=== PATIENT | female | born 1935 | race Caucasian/White ===

== ENCOUNTER → 2016-11-12 | Outpatient (CLI) | payer MEDICARE, OTHER | LOC: M WUC 10:59 | PROVIDERS: ATTEND Physician Assistant | DX: L03.116 Cellulitis of left lower limb (principal) ==

== ENCOUNTER → 2017-10-31 | Outpatient (REF) | payer MEDICARE, OTHER ==
[2017-10-31 13:25] LABS: BASO # 0.1 10^3/uL (0.0-0.2); EOS # 0.2 10^3/uL (0.0-0.50); EOS % 2.8 % (0.0-3.0); HEMATOCRIT 43.3 % (36.0-47.0); HEMOGLOBIN 13.8 g/dl (12.0-15.5); IMMATURE GRANULOCYTE % 0.3 % (0-3.0); LYMPH # 1.8 10^3/uL (1.5-4.5); LYMPH % 29.9 % (24.0-44.0); MEAN CORPUSCULAR HEMOGLOBIN 29.2 pg (27.0-33.0); MEAN CORPUSCULAR HGB CONC 31.9 g/dl (32.0-36.5); MEAN CORPUSCULAR VOLUME 91.5 fl (80.0-96.0); MONO # 0.5 10^3/uL (0.0-0.8); MONO % 8.4 % (0.0-5.0); NEUTROPHILS # 3.6 10^3/uL (1.8-7.7); NEUTROPHILS % 57.6 % (36.0-66.0); PLATELET COUNT, AUTOMATED 233 10^3/uL (150-450); RED BLOOD COUNT 4.73 10^6/uL (4.00-5.40); RED CELL DISTRIBUTION WIDTH 13.7 % (11.5-14.5); WHITE BLOOD COUNT 6.2 10^3/uL (4.0-10.0)
[2017-10-31 13:41] LABS: TOTAL 25(OH) VITAMIN D 43.3 NG/ML (30.0-100.0)
[2017-10-31 13:48] LABS: ALBUMIN 3.7 GM/DL (3.2-5.2); ALBUMIN/GLOBULIN RATIO 1.23 (1.00-1.93); ALKALINE PHOSPHATASE 61 U/L (45-117); ALT/SGPT 15 U/L (12-78); ANION GAP 7 MEQ/L (8-16); AST/SGOT 17 U/L (7-37); BILIRUBIN,TOTAL 0.4 MG/DL (0.2-1.0); BLOOD UREA NITROGEN 31 MG/DL (7-18); CALCIUM LEVEL 9.8 MG/DL (8.8-10.2); CARBON DIOXIDE LEVEL 27 MEQ/L (21-32); CHLORIDE LEVEL 109 MEQ/L (98-107); CHOLESTEROL LEVEL 209 MG/DL (<200); CHOLESTEROL RISK RATIO 5.358 (<5); CREATININE FOR GFR 1.22 MG/DL (0.55-1.30); GLOMERULAR FILTRATION RATE 44.7 (>32); GLUCOSE, FASTING 100 MG/DL (70-100); HDL CHOLESTEROL 39 MG/DL (>40); LDL CHOLESTEROL 122.2 MG/DL (<100); NON-HDL-C 170 MG/DL; POTASSIUM SERUM 4.6 MEQ/L (3.5-5.1); SODIUM LEVEL 143 MEQ/L (136-145); TOTAL PROTEIN 6.7 GM/DL (6.4-8.2); TRIGLYCERIDES LEVEL 239 MG/DL (<150)
== END ==
LOC: M SFHCADAM 12:41
DX: I10 Essential (primary) hypertension (principal); E55.9 Vitamin D deficiency, unspecified
CPT/HCPCS: 80053

== ENCOUNTER → 2018-05-30 | Outpatient (REF) | payer MEDICARE, OTHER | LOC: M LAB REF 17:18 | PROVIDERS: ATTEND Physician Assistant | DX: N39.0 Urinary tract infection, site not specified (principal) ==

== ENCOUNTER → 2018-06-18 | Outpatient (CLI) | payer MEDICARE, OTHER ==
--- NOTE | 2018-06-18 13:52 | REPMRS ---
Patient History The patient states she had a clinical breast exam in May 2018.No known family history of cancer. Took hormonal contraceptives for 20 years. Digital Mammo Screening Bilat: June 18, 2018 - Exam #: [id number] Bilateral CC and MLO view(s) were taken. Technologist: Kristine Barboza, Technologist Prior study comparison: June 09, 2014, bilateral bilat screen digital mammo, performed at [facility] ([facility] May 24, 2013, bilateral bilat screen digital mammo, performed at [facility] ([facility]). April 18, 2012, bilateral bilat screen digital mammo, performed at [facility] ([facility]). FINDINGS: There are scattered fibroglandular densities. There is a 6 mm spiculated density at approximately 12 o'clock in the right breast middle third which merits further evaluation. There has been no other change in the appearance of the mammogram from the prior studies. There is a mild amount of scattered fibroglandular density which is fairly symmetric. There is no other interval development of dominant mass, architectural distortion, or clustered microcalcification suggestive of malignancy. 3-D tomosynthesis shows no additional findings. Assessment: BI-RADS/ACR category 0 mammogram, incomplete. BIRADS/ACR category zero mammogram, incomplete. Additional imaging and/or prior images needed. Recommendation Ultrasound and special view mammogram of the right breast. This patient's Lifetime Breast Cancer RIsk is estimated at 0.6 %. This mammogram was interpreted with the aid of an FDA-approved computer-aided dectection system. Electronically Signed By: Boubacar Pak MD 06/18/18 [id number]
== END ==
LOC: M RAD 09:39
PROVIDERS: ATTEND Obstetrics & Gynecology
DX: R92.2 Inconclusive mammogram (principal)

== ENCOUNTER → 2018-06-28 | Outpatient (CLI) | payer MEDICARE, OTHER ==
--- NOTE | 2018-06-28 13:36 | REP ---
Digital diagnostic unilateral right breast mammography with CAD and focused right breast sonography: History: Screening mammography from June 18, 2018 was BI-RADS category 0 because of a possible 6 mm spiculated density at 12 o'clock position. Diagnostic imaging was recommended. Comparison is also made with prior mammography from June 09, 2014 and May 24, 2013. Mammographic findings: Magnified focal spot compression CC, MLO and true MLO views of the right breast confirm the presence of a slightly spiculated appearing 7 mm nodule in the superior and slightly medial right breast middle third at approximately the 1 o'clock position. Scattered fibroglandular elements are seen. No other suspicious mammographic finding. Sonographic findings: Focused right breast sonography is performed in the 12 to 1 o'clock position. There is a 4 mm cyst at 12 o'clock which does not have suspicious sonographic features. At 1 o'clock, 4.4 cm from the nipple there is a 7 x 7 x 6 mm hypoechoic mass with its long axis perpendicular to the skin producing acoustic shadowing and displaying irregular borders. This is felt to account for the mammographic opacity. It is sonographically suspicious as well. Impression: BI-RADS/ACR category 5 mammogram. Highly suggestive of malignancy - appropriate action should be taken. Requires biopsy or surgical treatment. BI-RADS category five highly suspicious right breast imaging. 7 mm spiculated mass seen mammographically and corresponding to an irregular 7 mm hypoechoic mass sonographically. Ultrasound-guided needle biopsy procedure of the right breast lesion is recommended with marker clip placement and post marker mammography. This mammogram was interpreted with the aid of an FDA-approved computer-aided detection system. The patient states she had a clinical breast exam in May 2018. The patient letter being requested is m4. Electronically Signed by Elvis Pak MD 06/28/2018 06:08 P
== END ==
LOC: M RAD 10:27
PROVIDERS: ATTEND Obstetrics & Gynecology
DX: N63.10 Unspecified lump in the right breast, unspecified quadrant (principal); N60.01 Solitary cyst of right breast

== ENCOUNTER → 2018-08-02 | Outpatient (REF) | payer MEDICARE, OTHER ==
[2018-08-02 12:50] LABS: BASO # 0.1 10^3/uL (0.0-0.2); EOS # 0.2 10^3/uL (0.0-0.50); EOS % 2.2 % (0.0-3.0); HEMATOCRIT 42.8 % (36.0-47.0); HEMOGLOBIN 13.5 g/dl (12.0-15.5); LYMPH # 2.4 10^3/uL (1.5-4.5); LYMPH % 35.7 % (24.0-44.0); MEAN CORPUSCULAR HEMOGLOBIN 28.4 pg (27.0-33.0); MEAN CORPUSCULAR HGB CONC 31.5 g/dl (32.0-36.5); MEAN CORPUSCULAR VOLUME 90.1 fl (80.0-96.0); MONO # 0.5 10^3/uL (0.0-0.8); MONO % 7.2 % (0.0-5.0); NEUTROPHILS # 3.6 10^3/uL (1.8-7.7); NEUTROPHILS % 53.6 % (36.0-66.0); PLATELET COUNT, AUTOMATED 262 10^3/uL (150-450); RED BLOOD COUNT 4.75 10^6/uL (4.00-5.40); WHITE BLOOD COUNT 6.8 10^3/uL (4.0-10.0)
[2018-08-02 12:58] LABS: ALBUMIN 3.6 GM/DL (3.2-5.2); BILIRUBIN,TOTAL 0.4 MG/DL (0.2-1.0); CALCIUM LEVEL 9.9 MG/DL (8.8-10.2); CREATININE FOR GFR 1.25 MG/DL (0.55-1.30); GLOMERULAR FILTRATION RATE 43.5 (>32); TOTAL PROTEIN 6.6 GM/DL (6.4-8.2)
== END ==
LOC: M SFHCADAM 09:57
PROVIDERS: ATTEND Family Medicine
DX: Z01.818 Encounter for other preprocedural examination (principal); C50.911 Malignant neoplasm of unspecified site of right female breast

== ENCOUNTER → 2018-08-02 | Outpatient (CLI) | payer MEDICARE, OTHER ==
--- NOTE | 2018-08-02 10:57 | REP ---
CHEST PA AND LATERAL: 08/02/2018. Clinical history: Preoperative examination. Findings: There were no prior studies. The two views show the lung lozoya well inflated. CP angles sharply defined. Some mild hyperinflation suggested with flattening of the diaphragms on the lateral view and prominent retrosternal clear space. No pulmonary nodule or parenchymal mass visible. There is no effusion, infiltrate, atelectasis or mass. Heart size borderline. No specific chamber enlargement. The mediastinal and hilar contours are normal. The aorta is mildly tortuous but normal for age. Airway intact. Bony thorax without acute compression deformity. There is some old post-traumatic changes of the inferior anterolateral and lateral left ribs. Impression: 1. Some mild hyperinflation with COPD but no infiltrate, effusion, cardiomegaly or edema. Electronically Signed by Ranjan Franco MD 08/02/2018 02:21 P
== END ==
LOC: M ADAMS 10:01
PROVIDERS: ATTEND Family Medicine
DX: Z01.818 Encounter for other preprocedural examination (principal); C50.911 Malignant neoplasm of unspecified site of right female breast; J44.9 Chronic obstructive pulmonary disease, unspecified
CPT/HCPCS: 71046; 80053; 85025; 93005; G0463

== ENCOUNTER → 2019-05-02 | Outpatient (REF) | payer MEDICARE, OTHER ==
[2019-05-02 17:14] LABS: BILIRUBIN,TOTAL 0.4 MG/DL (0.2-1.0); CALCIUM LEVEL 10.2 MG/DL (8.8-10.2); CREATININE FOR GFR 1.4 MG/DL (0.55-1.30); POTASSIUM SERUM 4.3 MEQ/L (3.5-5.1); TOTAL PROTEIN 7.5 GM/DL (6.4-8.2)
== END ==
LOC: M SFHCADAM 13:39
PROVIDERS: ATTEND Family Medicine
DX: I10 Essential (primary) hypertension (principal)
CPT/HCPCS: 80053; G0463

== ENCOUNTER → 2020-05-21 | Outpatient (REF) | payer MEDICARE, OTHER ==
[2020-05-22 13:16] LABS: BASO # 0.1 10^3/uL (0.0-0.2); BASO % 1.2 % (0.0-1.0); EOS # 0.3 10^3/uL (0.0-0.5); EOS % 3.6 % (0.0-3.0); HEMOGLOBIN 13.6 g/dl (12.0-15.5); LYMPH # 2.5 10^3/uL (1.5-5.0); LYMPH % 33.7 % (24.0-44.0); MEAN CORPUSCULAR HEMOGLOBIN 28.2 pg (27.0-33.0); MEAN CORPUSCULAR HGB CONC 30.9 g/dl (32.0-36.5); MEAN CORPUSCULAR VOLUME 91.3 fl (80.0-96.0); MONO # 0.7 10^3/uL (0.0-0.8); MONO % 9.3 % (0.0-5.0); NEUTROPHILS # 3.9 10^3/uL (1.5-8.5); NEUTROPHILS % 51.8 % (36.0-66.0); PLATELET COUNT, AUTOMATED 269 10^3/uL (150-450); RED BLOOD COUNT 4.82 10^6/uL (4.00-5.40); WHITE BLOOD COUNT 7.4 10^3/uL (4.0-10.0)
[2020-05-22 13:48] LABS: BILIRUBIN,TOTAL 0.4 MG/DL (0.2-1.0); CALCIUM LEVEL 10.6 MG/DL (8.8-10.2); CREATININE FOR GFR 1.63 MG/DL (0.55-1.30); GLOMERULAR FILTRATION RATE 31.8 (>32); POTASSIUM SERUM 4.9 MEQ/L (3.5-5.1)
[2020-05-22 13:49] LABS: ALBUMIN 3.9 GM/DL (3.2-5.2); CHOLESTEROL RISK RATIO 5.088 (<5)
== END ==
LOC: M SFHCADAM 15:31
PROVIDERS: ATTEND Family Medicine
DX: I10 Essential (primary) hypertension (principal); Z79.899 Other long term (current) drug therapy
CPT/HCPCS: 80053; 80061; 85025; G0463

== ENCOUNTER 2021-09-29 18:32 | Inpatient (IN) | payer MEDICARE, OTHER ==
[~2021-09-29] VITALS: Ht 162.6 cm; Wt 67.4 kg
[2021-09-29 22:50] LABS: BASO # 0.1 10^3/uL (0.0-0.2); BASO % 0.9 % (0.0-1.0); EOS # 0.2 10^3/uL (0.0-0.5); EOS % 2.3 % (0.0-3.0); HEMATOCRIT 38.3 % (36.0-47.0); HEMOGLOBIN 12.3 g/dl (12.0-15.5); LYMPH # 2.3 10^3/uL (1.5-5.0); LYMPH % 34.5 % (24.0-44.0); MEAN CORPUSCULAR HEMOGLOBIN 28.8 pg (27.0-33.0); MEAN CORPUSCULAR HGB CONC 32.1 g/dl (32.0-36.5); MEAN CORPUSCULAR VOLUME 89.7 fl (80.0-96.0); MONO # 0.7 10^3/uL (0.0-0.8); MONO % 10.7 % (2.0-8.0); NEUTROPHILS # 3.4 10^3/uL (1.5-8.5); NEUTROPHILS % 51.3 % (36.0-66.0); PLATELET COUNT, AUTOMATED 276 10^3/uL (150-450); RED BLOOD COUNT 4.27 10^6/uL (4.00-5.40); WHITE BLOOD COUNT 6.7 10^3/uL (4.0-10.0)
[2021-09-29 23:38] LABS: ALBUMIN 3.2 GM/DL (3.2-5.2); BILIRUBIN,DIRECT 0.2 MG/DL (0.0-0.2); BILIRUBIN,TOTAL 0.6 MG/DL (0.2-1.0); THYROID STIMULATING HORMONE 2.98 uIU/ML (0.358-3.740); TOTAL PROTEIN 5.9 GM/DL (6.4-8.2)
[2021-09-29] MEDS ORDERED: cefTRIAXone SOD 1 GM in D5W MINI-BAG PLUS 50 ML IV ONE (23:45)
[2021-09-30] MEDS ORDERED: LISI20TA33 PO (00:23)
[2021-09-30] MEDS ORDERED: VITA100093 PO (00:23)
[2021-09-30] MEDS ORDERED: IBUP-1720 PO (00:23)
[2021-09-30] MEDS ORDERED: CHLO25TA PO (00:23)
[2021-09-30] MEDS ORDERED: HOME MED LIST COMPLETE! XX SCH (00:25)
[2021-09-30 01:40] LABS: CREATININE FOR GFR 0.94 MG/DL (0.55-1.30)
[2021-09-30 01:41] LABS: CALCIUM LEVEL 10.5 MG/DL (8.8-10.2); POTASSIUM SERUM 3.9 MEQ/L (3.5-5.1)
[2021-09-30] MEDS ORDERED: IBUPROFEN 400MG TAB PO PRN (01:50)
[2021-09-30 02:01] LABS: RSV AMPLIFICATION NEGATIVE (NEGATIVE)
[2021-09-30 02:38] VITALS: BP 139/68
[2021-09-30 03:36] VITALS: BP 147/70
[2021-09-30] MEDS ORDERED: ACETAMINOPHEN TAB 650MG DOSE (2X325MG) PO PRN (05:30)
[2021-09-30 06:14] LABS: BASO # 0.1 10^3/uL (0.0-0.2); EOS # 0.2 10^3/uL (0.0-0.5); EOS % 3.3 % (0.0-3.0); HEMATOCRIT 38.2 % (36.0-47.0); HEMOGLOBIN 12.2 g/dl (12.0-15.5); LYMPH # 1.8 10^3/uL (1.5-5.0); LYMPH % 28.9 % (24.0-44.0); MEAN CORPUSCULAR HEMOGLOBIN 28.4 pg (27.0-33.0); MEAN CORPUSCULAR HGB CONC 31.9 g/dl (32.0-36.5); MEAN CORPUSCULAR VOLUME 88.8 fl (80.0-96.0); MONO # 0.7 10^3/uL (0.0-0.8); MONO % 11.2 % (2.0-8.0); NEUTROPHILS # 3.3 10^3/uL (1.5-8.5); NEUTROPHILS % 55.3 % (36.0-66.0); PLATELET COUNT, AUTOMATED 286 10^3/uL (150-450); WHITE BLOOD COUNT 6.1 10^3/uL (4.0-10.0)
[2021-09-30 07:25] VITALS: BP 134/76
[2021-09-30] MEDS: ENOXAPARIN 40MG/0.4ML SYRINGE (J1650 PER 10MG) SC SCH (08:00)
[2021-09-30] MEDS: CHLORTHALIDONE 25 MG TAB PO SCH (08:00)
[2021-09-30] MEDS: VITAMIN D 1,000 INTERNATIONAL UNITS TABLET PO SCH (08:00)
[2021-09-30 16:04] VITALS: BP 127/58
[2021-09-30 20:16] VITALS: BP 141/74
[2021-10-01] VITALS: BP 137/63
[2021-10-01 04:00] VITALS: BP 130/68
[2021-10-01 08:25] VITALS: BP 145/68
[2021-10-01] MEDS: ENOXAPARIN 40MG/0.4ML SYRINGE (J1650 PER 10MG) SC SCH (09:01)
[2021-10-01] MEDS: CHLORTHALIDONE 25 MG TAB PO SCH (09:01)
[2021-10-01] MEDS: VITAMIN D 1,000 INTERNATIONAL UNITS TABLET PO SCH (09:01)
[2021-10-01 15:30] VITALS: BP 150/80
[2021-10-01 22:00] VITALS: BP 136/63
[2021-10-02 06:00] VITALS: BP 138/70
[2021-10-02] MEDS: VITAMIN D 1,000 INTERNATIONAL UNITS TABLET PO SCH (09:00)
[2021-10-02] MEDS: ENOXAPARIN 40MG/0.4ML SYRINGE (J1650 PER 10MG) SC SCH (09:00)
[2021-10-02] MEDS: CHLORTHALIDONE 25 MG TAB PO SCH (09:00)
== END 2021-10-02 09:40 | disposition home health service (06) | DRG 948 ==
LOC: M ED 18:32 → M ED INP 18:33 → M PCU 09-30 02:36 → OBSVTOIN 10-01 10:17 → M MSPAV 10-01 15:16
PROVIDERS: ADMIT Internal Medicine; ATTEND Internal Medicine
DX: R53.1 Weakness (principal); R82.71 Bacteriuria; Z66 Do not resuscitate; I10 Essential (primary) hypertension; E55.9 Vitamin D deficiency, unspecified; Z85.3 Personal history of malignant neoplasm of breast; Z98.41 Cataract extraction status, right eye; Z98.42 Cataract extraction status, left eye; Z72.3 Lack of physical exercise; M54.9 Dorsalgia, unspecified; Z20.822 Contact with and (suspected) exposure to COVID-19; Z79.899 Other long term (current) drug therapy

== ENCOUNTER 2022-04-02 15:18 | Inpatient (IN) | payer MEDICARE, OTHER ==
[~2022-04-02] VITALS: Ht 165.1 cm; Wt 69.9 kg
[2022-04-02] MEDS: amLODIPine 5 MG TAB PO SCH (09:00)
[~2022-04-02 15:18] MED LIST: CHLO25TA PO; IBUP-1720 PO; LISI20TA33 PO; VITA100093 PO
[2022-04-02] MEDS ORDERED: BOOSTRIX/ADACEL VACCINE (DIPHTH/PERTUSS/ACELL/TETANUS) 0.5ML SYR IM.IMMUN ONE (15:45)
[2022-04-02] MEDS ORDERED: MORPHINE 4 MG/ML 1ML VIAL/SYRINGE IV ONE (16:55)
[2022-04-02 17:14] LABS: BASO # 0.1 10^3/uL (0.0-0.2); BASO % 0.4 % (0.0-1.0); EOS # 0.1 10^3/uL (0.0-0.5); EOS % 0.6 % (0.0-3.0); HEMATOCRIT 41.8 % (36.0-47.0); HEMOGLOBIN 13.2 g/dl (12.0-15.5); LYMPH # 1.3 10^3/uL (1.5-5.0); MEAN CORPUSCULAR HEMOGLOBIN 28.8 pg (27.0-33.0); MEAN CORPUSCULAR HGB CONC 31.6 g/dl (32.0-36.5); MEAN CORPUSCULAR VOLUME 91.3 fl (80.0-96.0); MONO # 0.6 10^3/uL (0.0-0.8); MONO % 4.3 % (2.0-8.0); NEUTROPHILS # 10.9 10^3/uL (1.5-8.5); NEUTROPHILS % 83.8 % (36.0-66.0); PLATELET COUNT, AUTOMATED 221 10^3/uL (150-450); RED BLOOD COUNT 4.58 10^6/uL (4.00-5.40)
[2022-04-02] MEDS ORDERED: HOME MED LIST COMPLETE! XX SCH (17:30)
[2022-04-02 17:38] LABS: CREATININE FOR GFR 1.1 MG/DL (0.55-1.30); GLOMERULAR FILTRATION RATE 49.9 (>32); POTASSIUM SERUM 3.9 MEQ/L (3.5-5.1)
[2022-04-02] MEDS ORDERED: MORPHINE 4 MG/ML 1ML VIAL/SYRINGE IV PRN (18:35)
[2022-04-02] MEDS ORDERED: MORPHINE 2 MG/ML 1ML VIAL IV PRN (18:35)
[2022-04-02 20:08] LABS: RSV AMPLIFICATION NEGATIVE (NEGATIVE)
[2022-04-02 20:55] VITALS: BP 145/97
[2022-04-02] MEDS: HEPARIN SOD (PORCINE) 5000UNITS/ML 1ML VIAL/SYRINGE SC SCH (21:24)
[2022-04-02] MEDS: KETOROLAC 30 MG/ML 1ML VIAL IV SCH (21:24)
[2022-04-03] VITALS (10 sets, daily range): BP systolic 113–147; BP diastolic 59–85
[2022-04-03] MEDS: KETOROLAC 30 MG/ML 1ML VIAL IV SCH ×3 (04:04→20:07)
[2022-04-03] MEDS: HEPARIN SOD (PORCINE) 5000UNITS/ML 1ML VIAL/SYRINGE SC SCH ×3 (06:00→20:06)
[2022-04-03 07:04] LABS: HEMATOCRIT 35.4 % (36.0-47.0); HEMOGLOBIN 11.3 g/dl (12.0-15.5); MEAN CORPUSCULAR HEMOGLOBIN 29.2 pg (27.0-33.0); MEAN CORPUSCULAR HGB CONC 31.9 g/dl (32.0-36.5); MEAN CORPUSCULAR VOLUME 91.5 fl (80.0-96.0); PLATELET COUNT, AUTOMATED 179 10^3/uL (150-450); RED BLOOD COUNT 3.87 10^6/uL (4.00-5.40); WHITE BLOOD COUNT 8.2 10^3/uL (4.0-10.0)
[2022-04-03] MEDS ORDERED: DESFLURANE 240 ML INHALANT As Ordered ONE (07:37)
[2022-04-03] MEDS ORDERED: fentaNYL 250 MCG/5 ML INJECTION As Ordered ONE (07:39)
[2022-04-03] MEDS ORDERED: propofoL 200 MG/20 ML VIAL As Ordered ONE (07:39)
[2022-04-03] MEDS ORDERED: dexameTHASONE 4 MG/ML 1ML VIAL (J1100 PER 1MG) As Ordered ONE (07:39)
[2022-04-03] MEDS ORDERED: ROCURONIUM BROMIDE 50 MG/5 ML VIAL As Ordered ONE (07:39)
[2022-04-03] MEDS ORDERED: ONDANSETRON 4MG 2ML VIAL As Ordered ONE (07:40)
[2022-04-03 07:45] LABS: CALCIUM LEVEL 9.3 MG/DL (8.8-10.2); CREATININE FOR GFR 1.22 MG/DL (0.55-1.30); GLOMERULAR FILTRATION RATE 44.3 (>32); MAGNESIUM LEVEL 1.7 MG/DL (1.8-2.4); POTASSIUM SERUM 4.1 MEQ/L (3.5-5.1)
[2022-04-03] MEDS: VITAMIN D 1,000 INTERNATIONAL UNITS TABLET PO SCH (08:35)
[2022-04-03] MEDS: amLODIPine 5 MG TAB PO SCH (08:36)
[2022-04-03] MEDS ORDERED: FLUBLOK(EGG FREE)(QUAD)INFLUENZA VACC 0.5ML SYRINGE 18YRS & OLDER IM.IMMUN ONE (09:00)
[2022-04-03] MEDS ORDERED: MAG SULF 1GM/100ML (MAG RUN) 1 GM in IV 1 EA IV ONE (10:50)
[2022-04-03] MEDS ORDERED: TRANEXAMIC ACID 100 MG/ML 10ML VIAL As Ordered ONE (11:36)
[2022-04-03] MEDS ORDERED: ceFAZolin 2 GM/D5W 50 ML IV BAG (J0690 PER 500MG) As Ordered ONE (11:36)
[2022-04-03] MEDS ORDERED: hydrALAZINE 20MG/ML 1ML VIAL (J0360 PER 20MG) As Ordered ONE (12:15)
[2022-04-03] MEDS ORDERED: HYDROmorphone HCL 2MG/ML 1ML VIAL As Ordered ONE (12:26)
[2022-04-03] MEDS ORDERED: VECURONIUM BROMIDE 10MG VIAL As Ordered ONE (12:39)
[2022-04-03] MEDS ORDERED: BUPIVACAINE HCL 0.5% 30ML VIAL As Ordered ONE (13:19)
[2022-04-03] MEDS ORDERED: BUPIVACAINE/EPIN 0.5% 30 ML VIAL As Ordered ONE (14:24)
[2022-04-03] MEDS ORDERED: ACETAMINOPHEN 1000MG 100ML IV BTL (OFIRMEV) (J0131 PER 10MG) As Ordered ONE (15:02)
[2022-04-03] MEDS ORDERED: SUGAMMADEX SODIUM 500 MG/5 ML VIAL (BRIDION) As Ordered ONE (15:05)
[2022-04-03] MEDS ORDERED: fentaNYL 100 MCG/2 ML INJECTION IV PRN (15:15)
[2022-04-03] MEDS ORDERED: ONDANSETRON 4MG 2ML VIAL IV PRN ×2 (15:15→16:30)
[2022-04-03] MEDS ORDERED: LR 1,000 ML IV SCH (15:15)
[2022-04-03] MEDS ORDERED: oxyCODONE 5MG TAB PO PRN (15:15)
[2022-04-03] MEDS ORDERED: traMADol 50 MG TAB PO PRN (16:30)
[2022-04-03] MEDS ORDERED: ACETAMINOPHEN TAB 650MG DOSE (2X325MG) PO PRN (16:30)
[2022-04-03] MEDS ORDERED: PERCOCET 5MG/325MG TAB PO PRN (16:30)
[2022-04-03] MEDS: LR 1,000 ML IV SCH (17:28)
[2022-04-03] MEDS: ASPIRIN 81MG ENTERIC TABLET PO SCH (20:06)
[2022-04-03] MEDS: ceFAZolin SOD 2 GM in IV 1 EA IV SCH (20:06)
[2022-04-04] MEDS: LR 1,000 ML IV SCH (01:44)
[2022-04-04 02:00] VITALS: BP 117/51
[2022-04-04] MEDS: ceFAZolin SOD 2 GM in IV 1 EA IV SCH (04:11)
[2022-04-04] MEDS: KETOROLAC 30 MG/ML 1ML VIAL IV SCH (04:12)
[2022-04-04] MEDS: HEPARIN SOD (PORCINE) 5000UNITS/ML 1ML VIAL/SYRINGE SC SCH ×3 (05:33→22:15)
[2022-04-04 05:54] VITALS: BP 140/56
[2022-04-04 06:02] LABS: HEMATOCRIT 26.7 % (36.0-47.0); HEMOGLOBIN 8.8 g/dl (12.0-15.5); MEAN CORPUSCULAR HEMOGLOBIN 29.3 pg (27.0-33.0); PLATELET COUNT, AUTOMATED 148 10^3/uL (150-450); WHITE BLOOD COUNT 8.2 10^3/uL (4.0-10.0)
[2022-04-04 06:39] LABS: CALCIUM LEVEL 8.9 MG/DL (8.8-10.2); CREATININE FOR GFR 1.36 MG/DL (0.55-1.30); GLOMERULAR FILTRATION RATE 39.1 (>32); MAGNESIUM LEVEL 1.9 MG/DL (1.8-2.4); POTASSIUM SERUM 3.8 MEQ/L (3.5-5.1)
[2022-04-04] MEDS: PERCOCET 5MG/325MG TAB PO PRN ×3 (06:52→20:36)
[2022-04-04] MEDS: amLODIPine 5 MG TAB PO SCH (09:00)
[2022-04-04 10:00] VITALS: BP 130/50
[2022-04-04] MEDS: ASPIRIN 81MG ENTERIC TABLET PO SCH ×2 (10:09→20:36)
[2022-04-04] MEDS: VITAMIN D 1,000 INTERNATIONAL UNITS TABLET PO SCH (10:09)
[2022-04-04 14:00] VITALS: BP 125/67
[2022-04-04 20:25] VITALS: BP 134/57
[2022-04-05 02:03] VITALS: BP 136/57
[2022-04-05] MEDS: HEPARIN SOD (PORCINE) 5000UNITS/ML 1ML VIAL/SYRINGE SC SCH (05:25)
[2022-04-05 06:12] VITALS: BP 135/58
[2022-04-05 07:13] LABS: MEAN CORPUSCULAR HEMOGLOBIN 30.1 pg (27.0-33.0); MEAN CORPUSCULAR HGB CONC 33.3 g/dl (32.0-36.5); MEAN CORPUSCULAR VOLUME 90.2 fl (80.0-96.0); PLATELET COUNT, AUTOMATED 145 10^3/uL (150-450); RED BLOOD COUNT 2.66 10^6/uL (4.00-5.40); WHITE BLOOD COUNT 7.5 10^3/uL (4.0-10.0)
[2022-04-05 07:41] LABS: CALCIUM LEVEL 8.5 MG/DL (8.8-10.2); CREATININE FOR GFR 1.03 MG/DL (0.55-1.30); GLOMERULAR FILTRATION RATE 53.8 (>32); MAGNESIUM LEVEL 1.7 MG/DL (1.8-2.4); PHOSPHORUS LEVEL 2.4 MG/DL (2.5-4.9); POTASSIUM SERUM 3.7 MEQ/L (3.5-5.1)
[2022-04-05] MEDS: ASPIRIN 81MG ENTERIC TABLET PO SCH (08:06)
[2022-04-05] MEDS: VITAMIN D 1,000 INTERNATIONAL UNITS TABLET PO SCH (08:06)
[2022-04-05 08:09] VITALS: BP 132/58
[2022-04-05] MEDS: amLODIPine 5 MG TAB PO SCH (08:09)
[2022-04-05] MEDS ORDERED: PERCOCET PO (11:47)
[2022-04-05] MEDS ORDERED: MIRA3350 PO (11:47)
[2022-04-05] MEDS ORDERED: COLA100C5 PO (11:47)
[2022-04-05] MEDS ORDERED: ASPI81TAEC PO (11:47)
[2022-04-05 12:00] VITALS: BP 128/60
== END 2022-04-05 13:05 | DRG 522 ==
LOC: EDBD 15:18 → M ED 16:43 → M ED INP 18:16 → ENRESERV 19:27 → M MS5PR 20:55
PROVIDERS: ADMIT Internal Medicine; ATTEND Internal Medicine
PROC: 0SRS0J9 Replacement of Left Hip Joint, Femoral Surface with Synthetic Substitute, Cemented, Open Approach (ICD-10-PCS; principal; 2022-04-03 10:00)
PROC: 0PSL04Z Reposition Left Ulna with Internal Fixation Device, Open Approach (ICD-10-PCS; 2022-04-03 10:00)
DX: M80.052A Age-related osteoporosis with current pathological fracture, left femur, initial encounter for fracture (principal); I10 Essential (primary) hypertension; M80.032A Age-related osteoporosis with current pathological fracture, left forearm, initial encounter for fracture; M80.022A Age-related osteoporosis with current pathological fracture, left humerus, initial encounter for fracture; Z79.899 Other long term (current) drug therapy

== ENCOUNTER 2022-04-05 09:50 | Inpatient (IN) | payer MEDICARE, OTHER ==
[~2022-04-05] VITALS: Ht 165.1 cm; Wt 76.1 kg
[2022-04-05] MEDS ORDERED: ASPI81TAEC PO (11:47)
[2022-04-05] MEDS ORDERED: MIRA3350 PO (11:47)
[2022-04-05] MEDS ORDERED: PERCOCET PO (11:47)
[2022-04-05] MEDS ORDERED: COLA100C5 PO (11:47)
[2022-04-05 13:29] VITALS: BP 138/64
[2022-04-05 14:00] VITALS: BP 138/64
[2022-04-05] MEDS: PANTOPRAZOLE 40MG TAB (PROTONIX) PO SCH (16:16)
[2022-04-05] MEDS: OYSTER SHELL CALCIUM 500 MG TAB PO SCH (16:16)
[2022-04-05] MEDS: ACETAMINOPHEN 500 MG TAB PO SCH ×2 (16:16→21:14)
[2022-04-05 20:00] VITALS: BP 121/57
[2022-04-05] MEDS: ASPIRIN 81MG ENTERIC TABLET PO SCH (21:13)
[2022-04-05] MEDS: DOCUSATE SODIUM 100MG CAPSULE PO SCH (21:13)
[2022-04-05] MEDS: SENNA 8.6 MG TAB (SENOKOT) PO SCH (21:14)
[2022-04-05] MEDS: MAGNESIUM OXIDE 400MG TAB (MAG-OX) PO SCH (21:14)
[2022-04-06 05:27] VITALS: BP 126/60
[2022-04-06 06:30] LABS: BASO # 0.1 10^3/uL (0.0-0.2); BASO % 0.7 % (0.0-1.0); EOS # 0.5 10^3/uL (0.0-0.5); EOS % 6.2 % (0.0-3.0); HEMATOCRIT 26.1 % (36.0-47.0); HEMOGLOBIN 8.3 g/dl (12.0-15.5); LYMPH # 1.1 10^3/uL (1.5-5.0); LYMPH % 13.2 % (24.0-44.0); MEAN CORPUSCULAR HEMOGLOBIN 28.9 pg (27.0-33.0); MEAN CORPUSCULAR HGB CONC 31.8 g/dl (32.0-36.5); MEAN CORPUSCULAR VOLUME 90.9 fl (80.0-96.0); MONO # 0.7 10^3/uL (0.0-0.8); MONO % 8.6 % (2.0-8.0); NEUTROPHILS # 5.8 10^3/uL (1.5-8.5); NEUTROPHILS % 70.7 % (36.0-66.0); PLATELET COUNT, AUTOMATED 158 10^3/uL (150-450); RED BLOOD COUNT 2.87 10^6/uL (4.00-5.40); WHITE BLOOD COUNT 8.2 10^3/uL (4.0-10.0)
[2022-04-06 06:55] LABS: ALBUMIN 2.3 GM/DL (3.2-5.2); BILIRUBIN,TOTAL 0.7 MG/DL (0.2-1.0); CREATININE FOR GFR 1.04 MG/DL (0.55-1.30); GLOMERULAR FILTRATION RATE 53.2 (>32); POTASSIUM SERUM 3.9 MEQ/L (3.5-5.1); TOTAL PROTEIN 5.4 GM/DL (6.4-8.2)
[2022-04-06] MEDS: VITAMIN D 1,000 INTERNATIONAL UNITS TABLET PO SCH (07:37)
[2022-04-06] MEDS: ASPIRIN 81MG ENTERIC TABLET PO SCH ×2 (07:37→20:08)
[2022-04-06] MEDS: DOCUSATE SODIUM 100MG CAPSULE PO SCH ×2 (07:37→20:08)
[2022-04-06] MEDS: PANTOPRAZOLE 40MG TAB (PROTONIX) PO SCH (07:37)
[2022-04-06] MEDS: amLODIPine 5 MG TAB PO SCH (07:37)
[2022-04-06] MEDS: MAGNESIUM OXIDE 400MG TAB (MAG-OX) PO SCH ×2 (07:38→20:09)
[2022-04-06] MEDS: ACETAMINOPHEN 500 MG TAB PO SCH ×3 (07:38→20:08)
[2022-04-06] MEDS: OYSTER SHELL CALCIUM 500 MG TAB PO SCH (07:38)
[2022-04-06 14:00] VITALS: BP 116/58
[2022-04-06] MEDS ORDERED: ACETAMINOPHEN TAB 650MG DOSE (2X325MG) PO ONE (14:40)
[2022-04-06] MEDS ORDERED: diphenhydrAMINE 25MG CAP PO ONE (14:40)
[2022-04-06 17:12] VITALS: BP 119/59
[2022-04-06 17:27] VITALS: BP 135/63
[2022-04-06 18:27] VITALS: BP 126/63
[2022-04-06 20:00] VITALS: BP 127/62
[2022-04-06] MEDS: SENNA 8.6 MG TAB (SENOKOT) PO SCH (20:08)
[2022-04-06 21:46] LABS: PERCENT SATURATION 7.3 % (13.2-45.0)
[2022-04-07 05:58] VITALS: BP 138/64
[2022-04-07] MEDS: VITAMIN D 1,000 INTERNATIONAL UNITS TABLET PO SCH (08:58)
[2022-04-07] MEDS: amLODIPine 5 MG TAB PO SCH (08:59)
[2022-04-07] MEDS: ASPIRIN 81MG ENTERIC TABLET PO SCH ×2 (08:59→20:30)
[2022-04-07] MEDS: ACETAMINOPHEN 500 MG TAB PO SCH ×3 (08:59→20:30)
[2022-04-07] MEDS: PANTOPRAZOLE 40MG TAB (PROTONIX) PO SCH (08:59)
[2022-04-07] MEDS: MIRALAX *UNIT DOSE* 17GM PACKET PO PRN (08:59)
[2022-04-07] MEDS: OYSTER SHELL CALCIUM 500 MG TAB PO SCH (08:59)
[2022-04-07] MEDS: MAGNESIUM OXIDE 400MG TAB (MAG-OX) PO SCH ×2 (09:00→20:30)
[2022-04-07] MEDS: DOCUSATE SODIUM 100MG CAPSULE PO SCH ×2 (09:00→20:30)
[2022-04-07 10:16] LABS: BASO # 0.1 10^3/uL (0.0-0.2); BASO % 0.7 % (0.0-1.0); EOS # 0.3 10^3/uL (0.0-0.5); EOS % 3.8 % (0.0-3.0); HEMATOCRIT 30.1 % (36.0-47.0); HEMOGLOBIN 9.7 g/dl (12.0-15.5); LYMPH # 0.8 10^3/uL (1.5-5.0); MEAN CORPUSCULAR HEMOGLOBIN 29.2 pg (27.0-33.0); MEAN CORPUSCULAR HGB CONC 32.2 g/dl (32.0-36.5); MEAN CORPUSCULAR VOLUME 90.7 fl (80.0-96.0); MONO # 0.6 10^3/uL (0.0-0.8); MONO % 7.8 % (2.0-8.0); NEUTROPHILS # 5.7 10^3/uL (1.5-8.5); NEUTROPHILS % 75.9 % (36.0-66.0); PLATELET COUNT, AUTOMATED 212 10^3/uL (150-450); RED BLOOD COUNT 3.32 10^6/uL (4.00-5.40); WHITE BLOOD COUNT 7.6 10^3/uL (4.0-10.0)
[2022-04-07] MEDS: FERROUS SULFATE 325MG TAB PO SCH ×2 (10:51→20:30)
[2022-04-07] MEDS ORDERED: oxyCODONE 5MG TAB PO ONE (11:05)
[2022-04-07] MEDS ORDERED: IBUPROFEN 400MG TAB PO PRN (11:10)
[2022-04-07] MEDS: ONDANSETRON 4MG TAB PO PRN (11:56)
[2022-04-07 14:00] VITALS: BP 130/60
[2022-04-07 20:12] VITALS: BP 130/62
[2022-04-07] MEDS: SENNA 8.6 MG TAB (SENOKOT) PO SCH (20:30)
[2022-04-08 05:52] LABS: BASO # 0.1 10^3/uL (0.0-0.2); BASO % 0.6 % (0.0-1.0); EOS # 0.6 10^3/uL (0.0-0.5); EOS % 6.9 % (0.0-3.0); HEMATOCRIT 26.9 % (36.0-47.0); HEMOGLOBIN 8.7 g/dl (12.0-15.5); LYMPH # 1.4 10^3/uL (1.5-5.0); LYMPH % 17.6 % (24.0-44.0); MEAN CORPUSCULAR HEMOGLOBIN 28.9 pg (27.0-33.0); MEAN CORPUSCULAR HGB CONC 32.3 g/dl (32.0-36.5); MEAN CORPUSCULAR VOLUME 89.4 fl (80.0-96.0); MONO # 0.8 10^3/uL (0.0-0.8); MONO % 10.2 % (2.0-8.0); NEUTROPHILS # 5.1 10^3/uL (1.5-8.5); NEUTROPHILS % 64.1 % (36.0-66.0); PLATELET COUNT, AUTOMATED 222 10^3/uL (150-450); RED BLOOD COUNT 3.01 10^6/uL (4.00-5.40); WHITE BLOOD COUNT 7.9 10^3/uL (4.0-10.0)
[2022-04-08 05:58] VITALS: BP 131/60
[2022-04-08 06:28] LABS: CALCIUM LEVEL 8.9 MG/DL (8.8-10.2); CREATININE FOR GFR 1.08 MG/DL (0.55-1.30); POTASSIUM SERUM 4.5 MEQ/L (3.5-5.1)
[2022-04-08] MEDS: oxyCODONE 5MG TAB PO PRN (07:21)
[2022-04-08] MEDS: DOCUSATE SODIUM 100MG CAPSULE PO SCH ×2 (07:22→20:32)
[2022-04-08] MEDS: VITAMIN D 1,000 INTERNATIONAL UNITS TABLET PO SCH (07:22)
[2022-04-08] MEDS: FERROUS SULFATE 325MG TAB PO SCH ×2 (07:22→20:32)
[2022-04-08] MEDS: amLODIPine 5 MG TAB PO SCH (07:22)
[2022-04-08] MEDS: MAGNESIUM OXIDE 400MG TAB (MAG-OX) PO SCH ×2 (07:22→20:32)
[2022-04-08] MEDS: ASPIRIN 81MG ENTERIC TABLET PO SCH ×2 (07:22→20:32)
[2022-04-08] MEDS: PANTOPRAZOLE 40MG TAB (PROTONIX) PO SCH (07:22)
[2022-04-08] MEDS: OYSTER SHELL CALCIUM 500 MG TAB PO SCH (07:22)
[2022-04-08] MEDS: ACETAMINOPHEN 500 MG TAB PO SCH ×3 (07:22→20:32)
[2022-04-08] MEDS: MIRALAX *UNIT DOSE* 17GM PACKET PO PRN (07:23)
[2022-04-08 14:00] VITALS: BP 130/72
[2022-04-08 19:56] VITALS: BP 130/61
[2022-04-08] MEDS: SENNA 8.6 MG TAB (SENOKOT) PO SCH (20:33)
[2022-04-08] MEDS: BISACODYL 10 MG SUPP PR PRN (20:33)
[2022-04-08 21:57] VITALS: BP 163/71
[2022-04-08 22:31] VITALS: BP 133/63
[2022-04-09 06:00] VITALS: BP 131/61
[2022-04-09] MEDS: oxyCODONE 5MG TAB PO PRN ×2 (06:35→13:35)
[2022-04-09] MEDS: MAGNESIUM OXIDE 400MG TAB (MAG-OX) PO SCH ×2 (08:11→20:20)
[2022-04-09] MEDS: FERROUS SULFATE 325MG TAB PO SCH ×2 (08:11→20:20)
[2022-04-09] MEDS: OYSTER SHELL CALCIUM 500 MG TAB PO SCH (08:11)
[2022-04-09] MEDS: DOCUSATE SODIUM 100MG CAPSULE PO SCH ×2 (08:11→20:19)
[2022-04-09] MEDS: VITAMIN D 1,000 INTERNATIONAL UNITS TABLET PO SCH (08:12)
[2022-04-09] MEDS: ASPIRIN 81MG ENTERIC TABLET PO SCH ×2 (08:12→20:19)
[2022-04-09] MEDS: PANTOPRAZOLE 40MG TAB (PROTONIX) PO SCH (08:12)
[2022-04-09] MEDS: ACETAMINOPHEN 500 MG TAB PO SCH ×3 (08:12→20:20)
[2022-04-09] MEDS: amLODIPine 5 MG TAB PO SCH (08:12)
[2022-04-09 08:27] LABS: BASO % 0.4 % (0.0-1.0); EOS # 0.3 10^3/uL (0.0-0.5); EOS % 3.5 % (0.0-3.0); HEMATOCRIT 28.8 % (36.0-47.0); HEMOGLOBIN 9.2 g/dl (12.0-15.5); LYMPH # 1.3 10^3/uL (1.5-5.0); MEAN CORPUSCULAR HEMOGLOBIN 28.9 pg (27.0-33.0); MEAN CORPUSCULAR HGB CONC 31.9 g/dl (32.0-36.5); MEAN CORPUSCULAR VOLUME 90.6 fl (80.0-96.0); MONO # 0.8 10^3/uL (0.0-0.8); MONO % 8.7 % (2.0-8.0); NEUTROPHILS # 6.7 10^3/uL (1.5-8.5); NEUTROPHILS % 72.4 % (36.0-66.0); PLATELET COUNT, AUTOMATED 273 10^3/uL (150-450); RED BLOOD COUNT 3.18 10^6/uL (4.00-5.40); WHITE BLOOD COUNT 9.3 10^3/uL (4.0-10.0)
[2022-04-09] MEDS: ONDANSETRON 4MG TAB PO PRN (10:46)
[2022-04-09 14:00] VITALS: BP 130/60
[2022-04-09 19:57] VITALS: BP 135/63
[2022-04-09] MEDS: SENNA 8.6 MG TAB (SENOKOT) PO SCH (20:20)
[2022-04-10 06:00] VITALS: BP 127/61
[2022-04-10] MEDS: MAGNESIUM OXIDE 400MG TAB (MAG-OX) PO SCH ×2 (08:09→20:19)
[2022-04-10] MEDS: FERROUS SULFATE 325MG TAB PO SCH ×2 (08:09→20:19)
[2022-04-10] MEDS: DOCUSATE SODIUM 100MG CAPSULE PO SCH ×2 (08:09→20:19)
[2022-04-10] MEDS: VITAMIN D 1,000 INTERNATIONAL UNITS TABLET PO SCH (08:10)
[2022-04-10] MEDS: amLODIPine 5 MG TAB PO SCH (08:10)
[2022-04-10] MEDS: OYSTER SHELL CALCIUM 500 MG TAB PO SCH (08:10)
[2022-04-10] MEDS: ASPIRIN 81MG ENTERIC TABLET PO SCH ×2 (08:10→20:19)
[2022-04-10] MEDS: ACETAMINOPHEN 500 MG TAB PO SCH ×3 (08:10→20:18)
[2022-04-10] MEDS: PANTOPRAZOLE 40MG TAB (PROTONIX) PO SCH (08:10)
[2022-04-10 14:00] VITALS: BP 135/63
[2022-04-10] MEDS: SENNA 8.6 MG TAB (SENOKOT) PO SCH (20:19)
[2022-04-10 20:53] VITALS: BP 136/63
[2022-04-10] MEDS: RAMELTEON 8 MG TAB (ROZEREM) PO PRN (22:43)
[2022-04-11 05:45] VITALS: BP 118/64
[2022-04-11] MEDS: oxyCODONE 5MG TAB PO PRN (06:06)
[2022-04-11 06:16] LABS: BASO % 0.5 % (0.0-1.0); EOS # 0.4 10^3/uL (0.0-0.5); HEMATOCRIT 27.3 % (36.0-47.0); HEMOGLOBIN 8.8 g/dl (12.0-15.5); LYMPH # 1.5 10^3/uL (1.5-5.0); LYMPH % 17.5 % (24.0-44.0); MEAN CORPUSCULAR HEMOGLOBIN 29.2 pg (27.0-33.0); MEAN CORPUSCULAR HGB CONC 32.2 g/dl (32.0-36.5); MEAN CORPUSCULAR VOLUME 90.7 fl (80.0-96.0); MONO # 0.8 10^3/uL (0.0-0.8); MONO % 9.3 % (2.0-8.0); NEUTROPHILS # 5.6 10^3/uL (1.5-8.5); NEUTROPHILS % 66.4 % (36.0-66.0); PLATELET COUNT, AUTOMATED 373 10^3/uL (150-450); RED BLOOD COUNT 3.01 10^6/uL (4.00-5.40); WHITE BLOOD COUNT 8.4 10^3/uL (4.0-10.0)
[2022-04-11 06:52] LABS: CALCIUM LEVEL 9.1 MG/DL (8.8-10.2); CREATININE FOR GFR 1.05 MG/DL (0.55-1.30); GLOMERULAR FILTRATION RATE 52.7 (>32); POTASSIUM SERUM 4.9 MEQ/L (3.5-5.1)
[2022-04-11] MEDS: OYSTER SHELL CALCIUM 500 MG TAB PO SCH (09:00)
[2022-04-11] MEDS: FERROUS SULFATE 325MG TAB PO SCH ×2 (09:00→20:11)
[2022-04-11] MEDS: VITAMIN D 1,000 INTERNATIONAL UNITS TABLET PO SCH (09:00)
[2022-04-11] MEDS: ACETAMINOPHEN 325 MG/10.15 ML UDC PO SCH ×3 (09:00→20:12)
[2022-04-11] MEDS: MAGNESIUM OXIDE 400MG TAB (MAG-OX) PO SCH ×2 (09:35→20:12)
[2022-04-11] MEDS: ASPIRIN 81MG ENTERIC TABLET PO SCH ×2 (09:35→20:11)
[2022-04-11] MEDS: amLODIPine 5 MG TAB PO SCH (09:35)
[2022-04-11] MEDS: PANTOPRAZOLE 40MG TAB (PROTONIX) PO SCH (09:35)
[2022-04-11] MEDS: DOCUSATE SODIUM 100MG CAPSULE PO SCH ×2 (09:35→20:11)
[2022-04-11 14:00] VITALS: BP 115/56
[2022-04-11] MEDS ORDERED: oxyCODONE 5MG TAB PO PRN (14:00)
[2022-04-11] MEDS: IBUPROFEN 400MG TAB PO SCH ×2 (14:53→21:38)
[2022-04-11] MEDS: oxyCODONE 5MG TAB PO SCH ×2 (16:17→20:11)
[2022-04-11 20:00] VITALS: BP 124/58
[2022-04-11] MEDS: RAMELTEON 8 MG TAB (ROZEREM) PO PRN (20:11)
[2022-04-11] MEDS: SENNA 8.6 MG TAB (SENOKOT) PO SCH (20:11)
[2022-04-11] MEDS: GABAPENTIN 100 MG CAP PO SCH (20:11)
[2022-04-12] MEDS: IBUPROFEN 400MG TAB PO SCH ×3 (05:36→21:47)
[2022-04-12 06:00] VITALS: BP 120/57
[2022-04-12] MEDS: DOCUSATE SODIUM 100MG CAPSULE PO SCH ×2 (07:35→20:08)
[2022-04-12] MEDS: OYSTER SHELL CALCIUM 500 MG TAB PO SCH (07:35)
[2022-04-12] MEDS: ASPIRIN 81MG ENTERIC TABLET PO SCH ×2 (07:35→20:08)
[2022-04-12] MEDS: MAGNESIUM OXIDE 400MG TAB (MAG-OX) PO SCH ×2 (07:35→20:08)
[2022-04-12] MEDS: VITAMIN D 1,000 INTERNATIONAL UNITS TABLET PO SCH (07:36)
[2022-04-12] MEDS: oxyCODONE 5MG TAB PO SCH ×3 (07:36→20:09)
[2022-04-12] MEDS: FERROUS SULFATE 325MG TAB PO SCH ×2 (07:37→20:08)
[2022-04-12] MEDS: ACETAMINOPHEN 325 MG/10.15 ML UDC PO SCH ×3 (07:37→20:09)
[2022-04-12] MEDS: PANTOPRAZOLE 40MG TAB (PROTONIX) PO SCH (07:37)
[2022-04-12] MEDS: amLODIPine 5 MG TAB PO SCH (07:37)
[2022-04-12] MEDS: MIRALAX *UNIT DOSE* 17GM PACKET PO PRN (07:38)
[2022-04-12 14:00] VITALS: BP 122/56
[2022-04-12 20:00] VITALS: BP 122/59
[2022-04-12] MEDS: SENNA 8.6 MG TAB (SENOKOT) PO SCH (20:08)
[2022-04-12] MEDS: GABAPENTIN 100 MG CAP PO SCH (20:08)
[2022-04-13] MEDS: IBUPROFEN 400MG TAB PO SCH ×2 (05:00→13:34)
[2022-04-13 05:02] VITALS: BP 138/62
[2022-04-13 07:24] LABS: BASO # 0.1 10^3/uL (0.0-0.2); BASO % 0.5 % (0.0-1.0); EOS # 0.8 10^3/uL (0.0-0.5); EOS % 8.5 % (0.0-3.0); HEMATOCRIT 28.1 % (36.0-47.0); HEMOGLOBIN 8.7 g/dl (12.0-15.5); LYMPH % 21.1 % (24.0-44.0); MEAN CORPUSCULAR HEMOGLOBIN 29.2 pg (27.0-33.0); MEAN CORPUSCULAR VOLUME 94.3 fl (80.0-96.0); MONO # 0.7 10^3/uL (0.0-0.8); MONO % 6.9 % (2.0-8.0); NEUTROPHILS # 5.9 10^3/uL (1.5-8.5); NEUTROPHILS % 61.4 % (36.0-66.0); PLATELET COUNT, AUTOMATED 475 10^3/uL (150-450); RED BLOOD COUNT 2.98 10^6/uL (4.00-5.40); WHITE BLOOD COUNT 9.7 10^3/uL (4.0-10.0)
[2022-04-13] MEDS: ASPIRIN 81MG ENTERIC TABLET PO SCH ×2 (07:35→22:39)
[2022-04-13] MEDS: FERROUS SULFATE 325MG TAB PO SCH ×2 (07:35→22:39)
[2022-04-13] MEDS: ACETAMINOPHEN 325 MG/10.15 ML UDC PO SCH ×3 (07:35→22:40)
[2022-04-13] MEDS: OYSTER SHELL CALCIUM 500 MG TAB PO SCH (07:36)
[2022-04-13] MEDS: PANTOPRAZOLE 40MG TAB (PROTONIX) PO SCH (07:36)
[2022-04-13] MEDS: MAGNESIUM OXIDE 400MG TAB (MAG-OX) PO SCH ×2 (07:36→22:39)
[2022-04-13] MEDS: DOCUSATE SODIUM 100MG CAPSULE PO SCH ×2 (07:36→22:39)
[2022-04-13] MEDS: VITAMIN D 1,000 INTERNATIONAL UNITS TABLET PO SCH (07:36)
[2022-04-13] MEDS: oxyCODONE 5MG TAB PO SCH ×3 (07:37→22:40)
[2022-04-13] MEDS: amLODIPine 5 MG TAB PO SCH (07:38)
[2022-04-13 07:57] LABS: CALCIUM LEVEL 9.2 MG/DL (8.8-10.2); CREATININE FOR GFR 1.37 MG/DL (0.55-1.30); GLOMERULAR FILTRATION RATE 38.7 (>32); POTASSIUM SERUM 5.1 MEQ/L (3.5-5.1)
[2022-04-13] MEDS ORDERED: NS 1,000 ML IV SCH (10:30)
[2022-04-13 14:00] VITALS: BP 123/58
[2022-04-13 20:00] VITALS: BP 127/62
[2022-04-13] MEDS ORDERED: IBUPROFEN 400MG TAB PO PRN (21:00)
[2022-04-13] MEDS: GABAPENTIN 100 MG CAP PO SCH (22:39)
[2022-04-13] MEDS: SENNA 8.6 MG TAB (SENOKOT) PO SCH (22:39)
[2022-04-14 06:02] VITALS: BP 118/64
[2022-04-14] MEDS: BISACODYL 10 MG SUPP PR PRN (06:12)
[2022-04-14 07:37] LABS: CALCIUM LEVEL 9.1 MG/DL (8.8-10.2); CREATININE FOR GFR 1.11 MG/DL (0.55-1.30); GLOMERULAR FILTRATION RATE 49.4 (>32); POTASSIUM SERUM 5.1 MEQ/L (3.5-5.1)
[2022-04-14] MEDS: oxyCODONE 5MG TAB PO SCH ×3 (09:00→20:07)
[2022-04-14] MEDS: ACETAMINOPHEN 325 MG/10.15 ML UDC PO SCH ×3 (09:00→20:06)
[2022-04-14] MEDS: MAGNESIUM OXIDE 400MG TAB (MAG-OX) PO SCH ×2 (09:10→20:06)
[2022-04-14] MEDS: ASPIRIN 81MG ENTERIC TABLET PO SCH ×2 (09:10→20:06)
[2022-04-14] MEDS: PANTOPRAZOLE 40MG TAB (PROTONIX) PO SCH (09:10)
[2022-04-14] MEDS: DOCUSATE SODIUM 100MG CAPSULE PO SCH ×2 (09:10→20:06)
[2022-04-14] MEDS: FERROUS SULFATE 325MG TAB PO SCH ×2 (09:10→20:06)
[2022-04-14] MEDS: VITAMIN D 1,000 INTERNATIONAL UNITS TABLET PO SCH (09:11)
[2022-04-14] MEDS: amLODIPine 5 MG TAB PO SCH (09:11)
[2022-04-14] MEDS: OYSTER SHELL CALCIUM 500 MG TAB PO SCH (09:11)
[2022-04-14 14:02] VITALS: BP 134/60
[2022-04-14 20:00] VITALS: BP 126/70
[2022-04-14] MEDS: GABAPENTIN 100 MG CAP PO SCH (20:06)
[2022-04-14] MEDS: SENNA 8.6 MG TAB (SENOKOT) PO SCH (20:06)
[2022-04-15 06:00] VITALS: BP 122/74
[2022-04-15 06:03] LABS: BASO # 0.1 10^3/uL (0.0-0.2); BASO % 0.6 % (0.0-1.0); EOS # 0.5 10^3/uL (0.0-0.5); HEMATOCRIT 25.9 % (36.0-47.0); HEMOGLOBIN 8.1 g/dl (12.0-15.5); LYMPH # 1.6 10^3/uL (1.5-5.0); LYMPH % 17.3 % (24.0-44.0); MEAN CORPUSCULAR HGB CONC 31.3 g/dl (32.0-36.5); MEAN CORPUSCULAR VOLUME 92.8 fl (80.0-96.0); MONO # 0.8 10^3/uL (0.0-0.8); MONO % 8.8 % (2.0-8.0); NEUTROPHILS # 6.3 10^3/uL (1.5-8.5); NEUTROPHILS % 67.4 % (36.0-66.0); PLATELET COUNT, AUTOMATED 500 10^3/uL (150-450); RED BLOOD COUNT 2.79 10^6/uL (4.00-5.40); WHITE BLOOD COUNT 9.3 10^3/uL (4.0-10.0)
[2022-04-15 06:34] LABS: CREATININE FOR GFR 0.97 MG/DL (0.55-1.30); GLOMERULAR FILTRATION RATE 57.7 (>32); POTASSIUM SERUM 4.9 MEQ/L (3.5-5.1)
[2022-04-15] MEDS: oxyCODONE 5MG TAB PO SCH ×3 (09:00→21:00)
[2022-04-15] MEDS: ACETAMINOPHEN 325 MG/10.15 ML UDC PO SCH ×3 (09:00→21:00)
[2022-04-15] MEDS: MAGNESIUM OXIDE 400MG TAB (MAG-OX) PO SCH ×2 (09:07→20:24)
[2022-04-15] MEDS: amLODIPine 5 MG TAB PO SCH (09:07)
[2022-04-15] MEDS: MIRALAX *UNIT DOSE* 17GM PACKET PO PRN (09:07)
[2022-04-15] MEDS: OYSTER SHELL CALCIUM 500 MG TAB PO SCH (09:07)
[2022-04-15] MEDS: PANTOPRAZOLE 40MG TAB (PROTONIX) PO SCH (09:07)
[2022-04-15] MEDS: FERROUS SULFATE 325MG TAB PO SCH ×2 (09:08→20:24)
[2022-04-15] MEDS: DOCUSATE SODIUM 100MG CAPSULE PO SCH ×2 (09:08→21:00)
[2022-04-15] MEDS: VITAMIN D 1,000 INTERNATIONAL UNITS TABLET PO SCH (09:08)
[2022-04-15] MEDS: ASPIRIN 81MG ENTERIC TABLET PO SCH ×2 (09:15→20:24)
[2022-04-15 14:00] VITALS: BP 144/76
[2022-04-15 20:00] VITALS: BP 127/60
[2022-04-15] MEDS: GABAPENTIN 100 MG CAP PO SCH (20:24)
[2022-04-15] MEDS: SENNA 8.6 MG TAB (SENOKOT) PO SCH (21:00)
[2022-04-16 06:00] VITALS: BP 146/66
[2022-04-16] MEDS: OYSTER SHELL CALCIUM 500 MG TAB PO SCH (08:22)
[2022-04-16] MEDS: VITAMIN D 1,000 INTERNATIONAL UNITS TABLET PO SCH (08:23)
[2022-04-16] MEDS: ASPIRIN 81MG ENTERIC TABLET PO SCH ×2 (08:23→19:19)
[2022-04-16] MEDS: MAGNESIUM OXIDE 400MG TAB (MAG-OX) PO SCH ×2 (08:23→19:19)
[2022-04-16] MEDS: PANTOPRAZOLE 40MG TAB (PROTONIX) PO SCH (08:23)
[2022-04-16] MEDS: oxyCODONE 5MG TAB PO SCH (08:24)
[2022-04-16] MEDS: FERROUS SULFATE 325MG TAB PO SCH ×2 (08:24→19:19)
[2022-04-16] MEDS: amLODIPine 5 MG TAB PO SCH (08:24)
[2022-04-16] MEDS: ACETAMINOPHEN 325 MG/10.15 ML UDC PO SCH ×3 (08:25→19:19)
[2022-04-16] MEDS: DOCUSATE SODIUM 100MG CAPSULE PO SCH ×2 (08:25→19:09)
[2022-04-16 14:00] VITALS: BP 127/60
[2022-04-16] MEDS: SENNA 8.6 MG TAB (SENOKOT) PO SCH (19:09)
[2022-04-16] MEDS: GABAPENTIN 100 MG CAP PO SCH (19:19)
[2022-04-16 20:00] VITALS: BP 132/60
[2022-04-17 06:00] VITALS: BP 141/66
[2022-04-17] MEDS: FERROUS SULFATE 325MG TAB PO SCH ×2 (07:40→20:09)
[2022-04-17] MEDS: ASPIRIN 81MG ENTERIC TABLET PO SCH ×2 (07:40→20:09)
[2022-04-17] MEDS: PANTOPRAZOLE 40MG TAB (PROTONIX) PO SCH (07:40)
[2022-04-17] MEDS: VITAMIN D 1,000 INTERNATIONAL UNITS TABLET PO SCH (07:40)
[2022-04-17] MEDS: amLODIPine 5 MG TAB PO SCH (07:40)
[2022-04-17] MEDS: OYSTER SHELL CALCIUM 500 MG TAB PO SCH (07:41)
[2022-04-17] MEDS: MAGNESIUM OXIDE 400MG TAB (MAG-OX) PO SCH ×2 (07:41→20:09)
[2022-04-17] MEDS: ACETAMINOPHEN 325 MG/10.15 ML UDC PO SCH ×3 (09:00→20:10)
[2022-04-17] MEDS: DOCUSATE SODIUM 100MG CAPSULE PO SCH ×2 (09:00→20:09)
[2022-04-17 14:00] VITALS: BP_SYST 132; BP_SYST 147; BP_DIAS 65; BP_DIAS 72
[2022-04-17 20:00] VITALS: BP 124/60
[2022-04-17] MEDS: GABAPENTIN 100 MG CAP PO SCH (20:08)
[2022-04-17] MEDS: SENNA 8.6 MG TAB (SENOKOT) PO SCH (20:10)
[2022-04-18 06:00] VITALS: BP 118/74
[2022-04-18 07:09] LABS: BASO # 0.1 10^3/uL (0.0-0.2); EOS # 0.4 10^3/uL (0.0-0.5); EOS % 4.6 % (0.0-3.0); HEMOGLOBIN 8.1 g/dl (12.0-15.5); LYMPH # 1.6 10^3/uL (1.5-5.0); LYMPH % 19.8 % (24.0-44.0); MEAN CORPUSCULAR HEMOGLOBIN 28.9 pg (27.0-33.0); MEAN CORPUSCULAR HGB CONC 31.2 g/dl (32.0-36.5); MEAN CORPUSCULAR VOLUME 92.9 fl (80.0-96.0); MONO # 0.7 10^3/uL (0.0-0.8); MONO % 8.3 % (2.0-8.0); NEUTROPHILS # 5.4 10^3/uL (1.5-8.5); NEUTROPHILS % 65.7 % (36.0-66.0); PLATELET COUNT, AUTOMATED 502 10^3/uL (150-450); WHITE BLOOD COUNT 8.2 10^3/uL (4.0-10.0)
[2022-04-18 07:45] LABS: CALCIUM LEVEL 9.4 MG/DL (8.8-10.2); CREATININE FOR GFR 0.94 MG/DL (0.55-1.30); GLOMERULAR FILTRATION RATE 59.8 (>32); POTASSIUM SERUM 4.6 MEQ/L (3.5-5.1)
[2022-04-18] MEDS: amLODIPine 5 MG TAB PO SCH (08:25)
[2022-04-18] MEDS: OYSTER SHELL CALCIUM 500 MG TAB PO SCH (08:25)
[2022-04-18] MEDS: VITAMIN D 1,000 INTERNATIONAL UNITS TABLET PO SCH (08:25)
[2022-04-18] MEDS: PANTOPRAZOLE 40MG TAB (PROTONIX) PO SCH (08:26)
[2022-04-18] MEDS: ASPIRIN 81MG ENTERIC TABLET PO SCH ×2 (08:26→20:37)
[2022-04-18] MEDS: FERROUS SULFATE 325MG TAB PO SCH ×2 (08:26→20:37)
[2022-04-18] MEDS: DOCUSATE SODIUM 100MG CAPSULE PO SCH ×2 (08:26→20:37)
[2022-04-18] MEDS: MAGNESIUM OXIDE 400MG TAB (MAG-OX) PO SCH ×2 (08:26→20:37)
[2022-04-18] MEDS: ACETAMINOPHEN 325 MG/10.15 ML UDC PO SCH ×3 (08:26→20:37)
[2022-04-18 14:00] VITALS: BP 149/67
[2022-04-18 20:00] VITALS: BP 153/67
[2022-04-18] MEDS: GABAPENTIN 100 MG CAP PO SCH (20:36)
[2022-04-18] MEDS: SENNA 8.6 MG TAB (SENOKOT) PO SCH (20:37)
[2022-04-19 06:00] VITALS: BP 139/64
[2022-04-19] MEDS: MAGNESIUM OXIDE 400MG TAB (MAG-OX) PO SCH ×2 (08:38→20:26)
[2022-04-19] MEDS: PANTOPRAZOLE 40MG TAB (PROTONIX) PO SCH (08:38)
[2022-04-19] MEDS: DOCUSATE SODIUM 100MG CAPSULE PO SCH ×2 (08:38→19:30)
[2022-04-19] MEDS: FERROUS SULFATE 325MG TAB PO SCH ×2 (08:38→20:26)
[2022-04-19] MEDS: OYSTER SHELL CALCIUM 500 MG TAB PO SCH (08:38)
[2022-04-19] MEDS: ASPIRIN 81MG ENTERIC TABLET PO SCH ×2 (08:38→20:25)
[2022-04-19] MEDS: amLODIPine 5 MG TAB PO SCH (08:39)
[2022-04-19] MEDS: VITAMIN D 1,000 INTERNATIONAL UNITS TABLET PO SCH (08:39)
[2022-04-19] MEDS: ACETAMINOPHEN 325 MG/10.15 ML UDC PO SCH ×3 (09:00→20:22)
[2022-04-19 14:00] VITALS: BP 141/68
[2022-04-19] MEDS: SENNA 8.6 MG TAB (SENOKOT) PO SCH (19:31)
[2022-04-19 20:00] VITALS: BP 136/65
[2022-04-19] MEDS: GABAPENTIN 100 MG CAP PO SCH (20:26)
[2022-04-20 06:00] VITALS: BP 139/67
[2022-04-20 06:39] LABS: BASO # 0.1 10^3/uL (0.0-0.2); BASO % 1.3 % (0.0-1.0); EOS # 0.4 10^3/uL (0.0-0.5); EOS % 5.1 % (0.0-3.0); HEMATOCRIT 26.6 % (36.0-47.0); HEMOGLOBIN 8.2 g/dl (12.0-15.5); LYMPH # 1.5 10^3/uL (1.5-5.0); LYMPH % 21.6 % (24.0-44.0); MEAN CORPUSCULAR HEMOGLOBIN 28.8 pg (27.0-33.0); MEAN CORPUSCULAR HGB CONC 30.8 g/dl (32.0-36.5); MEAN CORPUSCULAR VOLUME 93.3 fl (80.0-96.0); MONO # 0.7 10^3/uL (0.0-0.8); MONO % 9.4 % (2.0-8.0); NEUTROPHILS # 4.3 10^3/uL (1.5-8.5); PLATELET COUNT, AUTOMATED 485 10^3/uL (150-450); RED BLOOD COUNT 2.85 10^6/uL (4.00-5.40)
[2022-04-20 07:11] LABS: BLOOD UREA NITROGEN 25 MG/DL (7-18); CALCIUM LEVEL 9.4 MG/DL (8.8-10.2); CARBON DIOXIDE LEVEL 26 MEQ/L (21-32); CHLORIDE LEVEL 105 MEQ/L (98-107); CREATININE FOR GFR 0.86 MG/DL (0.55-1.30); GLOMERULAR FILTRATION RATE > 60.0 (>32); GLUCOSE, FASTING 95 MG/DL (70-100); POTASSIUM SERUM 4.7 MEQ/L (3.5-5.1); SODIUM LEVEL 140 MEQ/L (136-145)
[2022-04-20] MEDS: VITAMIN D 1,000 INTERNATIONAL UNITS TABLET PO SCH (08:06)
[2022-04-20] MEDS: ASPIRIN 81MG ENTERIC TABLET PO SCH ×2 (08:06→20:16)
[2022-04-20] MEDS: amLODIPine 5 MG TAB PO SCH (08:07)
[2022-04-20] MEDS: MAGNESIUM OXIDE 400MG TAB (MAG-OX) PO SCH ×2 (08:07→20:17)
[2022-04-20] MEDS: ACETAMINOPHEN 325 MG/10.15 ML UDC PO SCH ×3 (08:07→19:23)
[2022-04-20] MEDS: FERROUS SULFATE 325MG TAB PO SCH ×2 (08:07→20:17)
[2022-04-20] MEDS: OYSTER SHELL CALCIUM 500 MG TAB PO SCH (08:07)
[2022-04-20] MEDS: PANTOPRAZOLE 40MG TAB (PROTONIX) PO SCH (08:07)
[2022-04-20] MEDS: DOCUSATE SODIUM 100MG CAPSULE PO SCH ×2 (08:08→19:23)
[2022-04-20 14:00] VITALS: BP 141/65
[2022-04-20] MEDS: SENNA 8.6 MG TAB (SENOKOT) PO SCH (19:23)
[2022-04-20 20:00] VITALS: BP 132/68
[2022-04-20] MEDS: GABAPENTIN 100 MG CAP PO SCH (20:17)
[2022-04-21] VITALS (12 sets, daily range): BP systolic 127–160; BP diastolic 56–80
[2022-04-21] MEDS: ACETAMINOPHEN 325 MG/10.15 ML UDC PO SCH (10:19)
[2022-04-21] MEDS: ASPIRIN 81MG ENTERIC TABLET PO SCH ×2 (10:19→19:55)
[2022-04-21] MEDS: DOCUSATE SODIUM 100MG CAPSULE PO SCH ×2 (10:20→19:21)
[2022-04-21] MEDS: FERROUS SULFATE 325MG TAB PO SCH ×2 (10:20→19:55)
[2022-04-21] MEDS: MAGNESIUM OXIDE 400MG TAB (MAG-OX) PO SCH ×2 (10:20→19:55)
[2022-04-21] MEDS: OYSTER SHELL CALCIUM 500 MG TAB PO SCH (10:20)
[2022-04-21] MEDS: PANTOPRAZOLE 40MG TAB (PROTONIX) PO SCH (10:20)
[2022-04-21] MEDS: VITAMIN D 1,000 INTERNATIONAL UNITS TABLET PO SCH (10:20)
[2022-04-21] MEDS: amLODIPine 5 MG TAB PO SCH (10:25)
[2022-04-21] MEDS ORDERED: diphenhydrAMINE 25MG CAP PO ONE (10:30)
[2022-04-21] MEDS ORDERED: ACETAMINOPHEN 325 MG/10.15 ML UDC PO PRN (14:00)
[2022-04-21] MEDS: SENNA 8.6 MG TAB (SENOKOT) PO SCH (19:21)
[2022-04-21] MEDS: GABAPENTIN 100 MG CAP PO SCH (19:55)
[2022-04-22 05:57] LABS: BASO # 0.1 10^3/uL (0.0-0.2); BASO % 1.2 % (0.0-1.0); EOS # 0.4 10^3/uL (0.0-0.5); EOS % 5.9 % (0.0-3.0); HEMATOCRIT 31.9 % (36.0-47.0); LYMPH # 1.2 10^3/uL (1.5-5.0); MEAN CORPUSCULAR HEMOGLOBIN 29.3 pg (27.0-33.0); MEAN CORPUSCULAR HGB CONC 32.9 g/dl (32.0-36.5); MEAN CORPUSCULAR VOLUME 89.1 fl (80.0-96.0); MONO # 0.6 10^3/uL (0.0-0.8); MONO % 9.9 % (2.0-8.0); NEUTROPHILS # 3.7 10^3/uL (1.5-8.5); NEUTROPHILS % 62.5 % (36.0-66.0); PLATELET COUNT, AUTOMATED 390 10^3/uL (150-450); RED BLOOD COUNT 3.58 10^6/uL (4.00-5.40); WHITE BLOOD COUNT 5.9 10^3/uL (4.0-10.0)
[2022-04-22 05:59] LABS: HEMOGLOBIN 10.5 g/dl (12.0-15.5)
[2022-04-22 06:04] VITALS: BP 139/65
[2022-04-22 06:26] LABS: BLOOD UREA NITROGEN 21 MG/DL (7-18); CARBON DIOXIDE LEVEL 27 MEQ/L (21-32); CHLORIDE LEVEL 107 MEQ/L (98-107); CREATININE FOR GFR 0.82 MG/DL (0.55-1.30); GLOMERULAR FILTRATION RATE > 60.0 (>32); GLUCOSE, FASTING 99 MG/DL (70-100); POTASSIUM SERUM 4.3 MEQ/L (3.5-5.1); SODIUM LEVEL 140 MEQ/L (136-145)
[2022-04-22] MEDS: DOCUSATE SODIUM 100MG CAPSULE PO SCH (09:00)
[2022-04-22] MEDS: ASPIRIN 81MG ENTERIC TABLET PO SCH (09:21)
[2022-04-22] MEDS: PANTOPRAZOLE 40MG TAB (PROTONIX) PO SCH (09:21)
[2022-04-22] MEDS: FERROUS SULFATE 325MG TAB PO SCH (09:21)
[2022-04-22] MEDS: MAGNESIUM OXIDE 400MG TAB (MAG-OX) PO SCH (09:21)
[2022-04-22] MEDS: VITAMIN D 1,000 INTERNATIONAL UNITS TABLET PO SCH (09:21)
[2022-04-22] MEDS: OYSTER SHELL CALCIUM 500 MG TAB PO SCH (09:21)
[2022-04-22 09:22] VITALS: BP 139/65
[2022-04-22] MEDS: amLODIPine 5 MG TAB PO SCH (09:22)
[2022-04-22] MEDS ORDERED: CALCI50TA PO (10:22)
[2022-04-22] MEDS ORDERED: PANT40TA29 PO (10:22)
[2022-04-22] MEDS ORDERED: RAME8TAB2 PO (10:22)
[2022-04-22] MEDS ORDERED: ASPI81TAEC PO (10:22)
[2022-04-22] MEDS ORDERED: MAGN400T2 PO (10:22)
[2022-04-22] MEDS ORDERED: FERR1TAB8 PO (10:22)
[2022-04-22] MEDS ORDERED: GABA-1171 PO (10:22)
== END 2022-04-22 11:55 | DRG 561 ==
LOC: M PM&R 13:15
PROVIDERS: ADMIT Physical Medicine & Rehabilitation; ATTEND Physical Medicine & Rehabilitation
PROC: 30233N1 Transfusion of Nonautologous Red Blood Cells into Peripheral Vein, Percutaneous Approach (ICD-10-PCS; principal; 2022-04-06)
DX: S52.022D Displaced fracture of olecranon process without intraarticular extension of left ulna, subsequent encounter for closed fracture with routine healing (principal); S32.512D Fracture of superior rim of left pubis, subsequent encounter for fracture with routine healing; S32.592D Other specified fracture of left pubis, subsequent encounter for fracture with routine healing; R26.89 Other abnormalities of gait and mobility; I10 Essential (primary) hypertension; Z74.09 Other reduced mobility; D64.9 Anemia, unspecified; Z96.642 Presence of left artificial hip joint; Z79.82 Long term (current) use of aspirin; Z79.899 Other long term (current) drug therapy; M81.0 Age-related osteoporosis without current pathological fracture; E55.9 Vitamin D deficiency, unspecified

== ENCOUNTER → 2022-05-02 | Outpatient (REF) ==
[~2022-05-02] MED LIST changes: +ASPI81TAEC PO; +CALCI50TA PO; +COLA100C5 PO; +FERR1TAB8 PO; +GABA-1171 PO; +MAGN400T2 PO; +MIRA3350 PO; +PANT40TA29 PO; +PERCOCET PO; +RAME8TAB2 PO
[2022-05-02 10:07] LABS: HEMATOCRIT 42.6 % (36.0-47.0); HEMOGLOBIN 12.6 g/dl (12.0-15.5); MEAN CORPUSCULAR HEMOGLOBIN 27.8 pg (27.0-33.0); MEAN CORPUSCULAR HGB CONC 29.6 g/dl (32.0-36.5); PLATELET COUNT, AUTOMATED 411 10^3/uL (150-450); RED BLOOD COUNT 4.53 10^6/uL (4.00-5.40); WHITE BLOOD COUNT 7.8 10^3/uL (4.0-10.0)
[2022-05-02 10:32] LABS: ERYTHROCYTE SEDIMENTATION RATE 33 mm/hr (0-30)
[2022-05-02 10:34] LABS: C REACTIVE PROTEIN QUANTITATIV 0.9 MG/DL (<1.0); CALCIUM LEVEL 9.9 MG/DL (8.3-10.6); CREATININE FOR GFR 0.97 MG/DL (0.55-1.30); GLOMERULAR FILTRATION RATE 57.7 (>32); POTASSIUM SERUM 4.3 MMOL/L (3.5-5.1)
== END ==
PROVIDERS: ATTEND Physician Assistant
DX: S42.409D Unspecified fracture of lower end of unspecified humerus, subsequent encounter for fracture with routine healing (principal)

== ENCOUNTER → 2022-05-09 | Outpatient (REF) ==
[2022-05-09 10:31] LABS: HEMATOCRIT 41.8 % (36.0-47.0); HEMOGLOBIN 12.6 g/dl (12.0-15.5); MEAN CORPUSCULAR HEMOGLOBIN 28.2 pg (27.0-33.0); MEAN CORPUSCULAR HGB CONC 30.1 g/dl (32.0-36.5); MEAN CORPUSCULAR VOLUME 93.5 fl (80.0-96.0); PLATELET COUNT, AUTOMATED 370 10^3/uL (150-450); RED BLOOD COUNT 4.47 10^6/uL (4.00-5.40); WHITE BLOOD COUNT 7.4 10^3/uL (4.0-10.0)
[2022-05-09 11:06] LABS: ERYTHROCYTE SEDIMENTATION RATE 22 mm/hr (0-30)
[2022-05-09 11:09] LABS: POTASSIUM SERUM 4.5 MMOL/L (3.5-5.1)
[2022-05-09 11:16] LABS: C REACTIVE PROTEIN QUANTITATIV 0.4 MG/DL (<1.0); CALCIUM LEVEL 10.3 MG/DL (8.3-10.6)
[2022-05-09 11:18] LABS: CREATININE FOR GFR 0.94 MG/DL (0.55-1.30); GLOMERULAR FILTRATION RATE 59.8 (>32)
== END ==
PROVIDERS: ATTEND Physician Assistant
DX: S42.409D Unspecified fracture of lower end of unspecified humerus, subsequent encounter for fracture with routine healing (principal)

== ENCOUNTER → 2022-05-13 | Outpatient (CLI) | payer MEDICARE, OTHER | LOC: M RAD 15:24 | PROVIDERS: ATTEND Internal Medicine | DX: M54.50 Low back pain, unspecified (principal) ==

== ENCOUNTER → 2022-05-16 | Outpatient (REF) ==
[2022-05-16 11:23] LABS: HEMATOCRIT 40.6 % (36.0-47.0); HEMOGLOBIN 12.2 g/dl (12.0-15.5); MEAN CORPUSCULAR HEMOGLOBIN 27.6 pg (27.0-33.0); MEAN CORPUSCULAR VOLUME 91.9 fl (80.0-96.0); PLATELET COUNT, AUTOMATED 291 10^3/uL (150-450); RED BLOOD COUNT 4.42 10^6/uL (4.00-5.40); WHITE BLOOD COUNT 8.2 10^3/uL (4.0-10.0)
[2022-05-16 11:58] LABS: ERYTHROCYTE SEDIMENTATION RATE 18 mm/hr (0-30)
[2022-05-16 12:14] LABS: C REACTIVE PROTEIN QUANTITATIV 2.3 MG/DL (<1.0)
[2022-05-16 12:15] LABS: CALCIUM LEVEL 9.7 MG/DL (8.3-10.6); CREATININE FOR GFR 0.99 MG/DL (0.55-1.30); GLOMERULAR FILTRATION RATE 56.4 (>32); POTASSIUM SERUM 4.4 MMOL/L (3.5-5.1)
== END ==
PROVIDERS: ATTEND Internal Medicine
DX: S42.409D Unspecified fracture of lower end of unspecified humerus, subsequent encounter for fracture with routine healing (principal)

== ENCOUNTER → 2022-05-19 | Outpatient (REF) | PROVIDERS: ATTEND Physician Assistant | DX: S42.409D Unspecified fracture of lower end of unspecified humerus, subsequent encounter for fracture with routine healing (principal); Z53.8 Procedure and treatment not carried out for other reasons ==

== ENCOUNTER → 2022-05-24 | Outpatient (REF) | payer MEDICARE, OTHER ==
[2022-05-24 18:08] LABS: ALBUMIN 3.8 G/DL (3.2-5.2); BILIRUBIN,TOTAL 0.5 MG/DL (0.3-1.2); CALCIUM LEVEL 10.9 MG/DL (8.3-10.6); CREATININE FOR GFR 1.15 MG/DL (0.55-1.30); GLOMERULAR FILTRATION RATE 47.4 (>32); POTASSIUM SERUM 4.2 MMOL/L (3.5-5.1)
== END ==
LOC: M SFHCADAM 15:03
PROVIDERS: ATTEND Family Medicine
DX: I10 Essential (primary) hypertension (principal)

== ENCOUNTER → 2022-05-27 | Outpatient (CLI) | payer MEDICARE, OTHER | LOC: M SOG 07:57 | PROVIDERS: ATTEND Orthopaedic Surgery Adult Reconstructive Orthopaedic Surgery | DX: S52.032D Displaced fracture of olecranon process with intraarticular extension of left ulna, subsequent encounter for closed fracture with routine healing (principal); S72.002D Fracture of unspecified part of neck of left femur, subsequent encounter for closed fracture with routine healing; Z96.642 Presence of left artificial hip joint; Z53.9 Procedure and treatment not carried out, unspecified reason ==

== ENCOUNTER 2022-06-17 16:52 | Inpatient (IN) | payer MEDICARE, OTHER ==
[~2022-06-17] VITALS: Ht 167.6 cm; Wt 59.0 kg
[~2022-06-17 16:52] MED LIST changes: -ADVI200C8 PO; -CHLO125TA PO; -PHEN15SP5
[2022-06-17] MEDS ORDERED: LISI20TA33 PO (20:16)
[2022-06-17] MEDS ORDERED: CHLO125TA PO (20:16)
[2022-06-17] MEDS ORDERED: PHEN15SP5 (20:25)
[2022-06-17] MEDS ORDERED: ADVI200C8 PO (20:25)
[2022-06-17] MEDS ORDERED: HOME MED LIST COMPLETE! XX SCH (20:30)
[2022-06-17] MEDS ORDERED: ONDANSETRON 4MG 2ML VIAL As Ordered ONE (20:35)
[2022-06-17] MEDS ORDERED: LIDOCAINE 2% 100MG/5ML SDV (FOR ANES.) As Ordered ONE (20:35)
[2022-06-17] MEDS ORDERED: propofoL 200 MG/20 ML VIAL As Ordered ONE (20:35)
[2022-06-17] MEDS ORDERED: fentaNYL 100 MCG/2 ML INJECTION As Ordered ONE (20:36)
[2022-06-17] MEDS ORDERED: MIDAZOLAM INJ 2MG/2ML VIAL As Ordered ONE (20:36)
[2022-06-17] MEDS ORDERED: ACETAMINOPHEN 1000MG 100ML IV BAG As Ordered ONE (20:40)
[2022-06-17] MEDS ORDERED: ceFAZolin 2 GM/D5W 50 ML IV BAG As Ordered ONE (21:45)
[2022-06-17] MEDS ORDERED: LABETALOL 100MG/20ML VIAL As Ordered ONE (22:02)
[2022-06-17] MEDS ORDERED: HYDROmorphone HCL 2MG/ML 1ML VIAL As Ordered ONE (22:04)
[2022-06-17 22:28] LABS: BASO % 0.4 % (0.0-1.0); EOS # 0.1 10^3/uL (0.0-0.5); EOS % 0.6 % (0.0-3.0); HEMOGLOBIN 13.6 g/dl (12.0-15.5); LYMPH # 1.6 10^3/uL (1.5-5.0); LYMPH % 16.9 % (24.0-44.0); MEAN CORPUSCULAR HGB CONC 32.4 g/dl (32.0-36.5); MEAN CORPUSCULAR VOLUME 83.5 fl (80.0-96.0); MONO # 0.8 10^3/uL (0.0-0.8); MONO % 8.5 % (2.0-8.0); NEUTROPHILS # 6.9 10^3/uL (1.5-8.5); NEUTROPHILS % 73.1 % (36.0-66.0); PLATELET COUNT, AUTOMATED 395 10^3/uL (150-450); RED BLOOD COUNT 5.03 10^6/uL (4.00-5.40); WHITE BLOOD COUNT 9.5 10^3/uL (4.0-10.0)
[2022-06-17] MEDS ORDERED: VANCOMYCIN 500MG/10ML VIAL As Ordered ONE (22:45)
[2022-06-17] MEDS ORDERED: fentaNYL 100 MCG/2 ML INJECTION IV PRN (23:05)
[2022-06-17] MEDS ORDERED: oxyCODONE 5MG TAB PO PRN (23:05)
[2022-06-17] MEDS ORDERED: ONDANSETRON 4MG 2ML VIAL IV PRN (23:05)
[2022-06-17] MEDS ORDERED: LR 1,000 ML IV SCH (23:05)
[2022-06-17] MEDS ORDERED: VANCOMYCIN HCL 1,000 MG, VIAL MATE ADAPTER 1 EACH in NS 250 ML IV SCH (23:40)
[2022-06-17 23:45] VITALS: BP 135/79
[2022-06-18] VITALS (8 sets, daily range): BP systolic 115–166; BP diastolic 56–79
[2022-06-18] MEDS ORDERED: IBUPROFEN 600MG TAB PO PRN
[2022-06-18] MEDS ORDERED: VANCOMYCIN HCL 750 MG, VIAL MATE ADAPTER 1 EACH in D5W 250 ML IV ONE ×3
[2022-06-18] MEDS: HYDROMORPHONE HCL 0.5 MG/ 0.5 ML SYRINGE IV PRN ×2 (00:11→00:21)
[2022-06-18] MEDS ORDERED: VANCOMYCIN HCL 500 MG in D5W MINI-BAG PLUS 100 ML IV ONE (01:00)
[2022-06-18 03:56] LABS: ALBUMIN 2.6 G/DL (3.2-5.2); ALKALINE PHOSPHATASE 72 U/L (46-116); ALT/SGPT < 9 U/L (7.0-40); AST/SGOT 13 U/L (<34); BILIRUBIN,TOTAL 0.2 MG/DL (0.3-1.2); BLOOD UREA NITROGEN 34 MG/DL (9-23); CALCIUM LEVEL 8.4 MG/DL (8.3-10.6); CARBON DIOXIDE LEVEL 20 MMOL/L (20-31); CHLORIDE LEVEL 98 MMOL/L (98-107); CREATININE FOR GFR 1.65 MG/DL (0.55-1.30); GLOMERULAR FILTRATION RATE 31.3 (>32); GLUCOSE, FASTING 155 MG/DL (74-106); POTASSIUM SERUM 2.2 MMOL/L (3.5-5.1); SODIUM LEVEL 133 MMOL/L (136-145); TOTAL PROTEIN 5.7 G/DL (5.7-8.2)
[2022-06-18] MEDS ORDERED: POTASSIUM CHLORIDE 10MEQ SR TABLET PO ONE ×2 (04:15→15:00)
[2022-06-18] MEDS: KCL 10MEQ/100ML SWI (KRUN) 10 MEQ in IV 1 EA IV SCH ×2 (04:28→05:43)
[2022-06-18] MEDS: ACETAMINOPHEN TAB 650MG DOSE (2X325MG) PO PRN (04:50)
[2022-06-18] MEDS ORDERED: ACETAMINOPHEN 500 MG TAB PO PRN (07:25)
[2022-06-18] MEDS: NS 1,000 ML IV SCH ×2 (08:32→20:10)
[2022-06-18 08:44] LABS: ALBUMIN 2.4 G/DL (3.2-5.2); ALKALINE PHOSPHATASE 78 U/L (46-116); ALT/SGPT < 9 U/L (7.0-40); AST/SGOT 12 U/L (<34); BILIRUBIN,TOTAL 0.2 MG/DL (0.3-1.2); BLOOD UREA NITROGEN 59 MG/DL (9-23); CALCIUM LEVEL 8.6 MG/DL (8.3-10.6); CARBON DIOXIDE LEVEL 24 MMOL/L (20-31); CHLORIDE LEVEL 98 MMOL/L (98-107); CREATININE FOR GFR 1.69 MG/DL (0.55-1.30); GLOMERULAR FILTRATION RATE 30.4 (>32); GLUCOSE, FASTING 99 MG/DL (74-106); POTASSIUM SERUM 3.1 MMOL/L (3.5-5.1); SODIUM LEVEL 135 MMOL/L (136-145); TOTAL PROTEIN 5.2 G/DL (5.7-8.2)
[2022-06-18] MEDS: CHLORTHALIDONE 25 MG TAB PO SCH (10:42)
[2022-06-18] MEDS: VITAMIN D 1,000 INTERNATIONAL UNITS TABLET PO SCH (10:42)
[2022-06-18] MEDS: MORPHINE 2 MG/ML 1ML VIAL IV PRN ×2 (10:43→18:54)
[2022-06-18 14:04] LABS: CALCIUM LEVEL 8.1 MG/DL (8.3-10.6); CREATININE FOR GFR 1.59 MG/DL (0.55-1.30); GLOMERULAR FILTRATION RATE 32.6 (>32)
[2022-06-18] MEDS ORDERED: SODIUM CHLORIDE NASAL 0.65% SPRAY BTL (OCEAN) PRN (20:20)
[2022-06-18] MEDS: VANCOMYCIN HCL 750 MG, VIAL MATE ADAPTER 1 EACH in D5W 250 ML IV SCH (21:15)
[2022-06-18] MEDS ORDERED: FLUTICASONE PROP 0.05% NASAL SPRAY 16 GM (FLONASE) NARES PRN (23:30)
[2022-06-19 06:00] VITALS: BP 125/68
[2022-06-19 06:09] LABS: BASO # 0.1 10^3/uL (0.0-0.2); BASO % 0.7 % (0.0-1.0); EOS # 0.2 10^3/uL (0.0-0.5); EOS % 2.3 % (0.0-3.0); HEMOGLOBIN 11.8 g/dl (12.0-15.5); LYMPH # 1.3 10^3/uL (1.5-5.0); LYMPH % 17.5 % (24.0-44.0); MEAN CORPUSCULAR HEMOGLOBIN 26.9 pg (27.0-33.0); MEAN CORPUSCULAR HGB CONC 31.9 g/dl (32.0-36.5); MEAN CORPUSCULAR VOLUME 84.3 fl (80.0-96.0); MONO # 0.7 10^3/uL (0.0-0.8); MONO % 9.5 % (2.0-8.0); NEUTROPHILS # 5.3 10^3/uL (1.5-8.5); NEUTROPHILS % 69.5 % (36.0-66.0); PLATELET COUNT, AUTOMATED 359 10^3/uL (150-450); RED BLOOD COUNT 4.39 10^6/uL (4.00-5.40); WHITE BLOOD COUNT 7.7 10^3/uL (4.0-10.0)
[2022-06-19 06:26] LABS: MAGNESIUM LEVEL 1.6 MG/DL (1.8-2.4)
[2022-06-19 06:28] LABS: ALBUMIN 2.2 G/DL (3.2-5.2); ALKALINE PHOSPHATASE 78 U/L (46-116); ALT/SGPT < 9 U/L (7.0-40); AST/SGOT 17 U/L (<34); BILIRUBIN,TOTAL 0.3 MG/DL (0.3-1.2); BLOOD UREA NITROGEN 41 MG/DL (9-23); CALCIUM LEVEL 8.8 MG/DL (8.3-10.6); CARBON DIOXIDE LEVEL 20 MMOL/L (20-31); CHLORIDE LEVEL 105 MMOL/L (98-107); CREATININE FOR GFR 0.96 MG/DL (0.55-1.30); GLOMERULAR FILTRATION RATE 58.4 (>32); GLUCOSE, FASTING 102 MG/DL (74-106); POTASSIUM SERUM 3.4 MMOL/L (3.5-5.1); SODIUM LEVEL 138 MMOL/L (136-145); TOTAL PROTEIN 5.1 G/DL (5.7-8.2)
[2022-06-19] MEDS ORDERED: POTASSIUM CHLORIDE 10MEQ SR TABLET PO ONE (07:25)
[2022-06-19] MEDS ORDERED: MAGNESIUM OXIDE 400MG TAB (MAG-OX) PO ONE (07:25)
[2022-06-19] MEDS: NS 1,000 ML IV SCH (09:00)
[2022-06-19] MEDS: VITAMIN D 1,000 INTERNATIONAL UNITS TABLET PO SCH (10:30)
[2022-06-19] MEDS: CHLORTHALIDONE 25 MG TAB PO SCH (10:30)
[2022-06-19] MEDS: VANCOMYCIN HCL 750 MG, VIAL MATE ADAPTER 1 EACH in D5W 250 ML IV SCH (10:32)
[2022-06-19] MEDS: MORPHINE 2 MG/ML 1ML VIAL IV PRN (10:32)
[2022-06-19 11:35] LABS: HEMATOCRIT 37.7 % (36.0-47.0); HEMOGLOBIN 11.9 g/dl (12.0-15.5)
[2022-06-19 14:00] VITALS: BP 138/70
[2022-06-19] MEDS: ACETAMINOPHEN TAB 650MG DOSE (2X325MG) PO PRN (21:37)
[2022-06-19 21:38] VITALS: BP 127/60
[2022-06-20] MEDS ORDERED: VANCOMYCIN HCL 1,000 MG, VIAL MATE ADAPTER 1 EACH in D5W 250 ML IV SCH (04:00)
[2022-06-20 06:00] VITALS: BP 126/67
[2022-06-20 07:58] LABS: BASO # 0.1 10^3/uL (0.0-0.2); BASO % 0.6 % (0.0-1.0); BASO % 0.8 % (0.0-1.0); EOS # 0.4 10^3/uL (0.0-0.5); EOS % 4.1 % (0.0-3.0); HEMATOCRIT 38.6 % (36.0-47.0); HEMATOCRIT 39.6 % (36.0-47.0); HEMOGLOBIN 12.2 g/dl (12.0-15.5); LYMPH # 2.1 10^3/uL (1.5-5.0); LYMPH % 23.7 % (24.0-44.0); LYMPH % 24.4 % (24.0-44.0); MEAN CORPUSCULAR HEMOGLOBIN 26.9 pg (27.0-33.0); MEAN CORPUSCULAR HGB CONC 30.8 g/dl (32.0-36.5); MEAN CORPUSCULAR HGB CONC 31.1 g/dl (32.0-36.5); MEAN CORPUSCULAR VOLUME 86.5 fl (80.0-96.0); MEAN CORPUSCULAR VOLUME 87.6 fl (80.0-96.0); MONO # 0.8 10^3/uL (0.0-0.8); MONO % 8.7 % (2.0-8.0); MONO % 8.9 % (2.0-8.0); NEUTROPHILS # 5.3 10^3/uL (1.5-8.5); NEUTROPHILS # 5.4 10^3/uL (1.5-8.5); NEUTROPHILS % 61.1 % (36.0-66.0); NEUTROPHILS % 62.1 % (36.0-66.0); PLATELET COUNT, AUTOMATED 433 10^3/uL (150-450); PLATELET COUNT, AUTOMATED 438 10^3/uL (150-450); RED BLOOD COUNT 4.46 10^6/uL (4.00-5.40); RED BLOOD COUNT 4.52 10^6/uL (4.00-5.40); WHITE BLOOD COUNT 8.7 10^3/uL (4.0-10.0); WHITE BLOOD COUNT 8.8 10^3/uL (4.0-10.0)
[2022-06-20 08:27] LABS: MAGNESIUM LEVEL 1.7 MG/DL (1.8-2.4)
[2022-06-20 08:28] LABS: ALBUMIN 2.3 G/DL (3.2-5.2); ALKALINE PHOSPHATASE 79 U/L (46-116); ALT/SGPT < 9 U/L (7.0-40); AST/SGOT 14 U/L (<34); BILIRUBIN,TOTAL 0.4 MG/DL (0.3-1.2); BLOOD UREA NITROGEN 29 MG/DL (9-23); CALCIUM LEVEL 9.4 MG/DL (8.3-10.6); CARBON DIOXIDE LEVEL 24 MMOL/L (20-31); CHLORIDE LEVEL 105 MMOL/L (98-107); CREATININE FOR GFR 0.84 MG/DL (0.55-1.30); GLOMERULAR FILTRATION RATE > 60.0 (>32); GLUCOSE, FASTING 97 MG/DL (74-106); POTASSIUM SERUM 3.3 MMOL/L (3.5-5.1); SODIUM LEVEL 140 MMOL/L (136-145); TOTAL PROTEIN 5.2 G/DL (5.7-8.2)
[2022-06-20] MEDS: VITAMIN D 1,000 INTERNATIONAL UNITS TABLET PO SCH (09:02)
[2022-06-20] MEDS: CHLORTHALIDONE 25 MG TAB PO SCH (09:02)
[2022-06-20] MEDS ORDERED: MAGNESIUM OXIDE 400MG TAB (MAG-OX) PO ONE (10:15)
[2022-06-20] MEDS ORDERED: POTASSIUM CHLORIDE 10MEQ SR TABLET PO ONE (10:30)
[2022-06-20] MEDS: oxyCODONE 5MG TAB PO PRN ×2 (13:26→21:10)
[2022-06-20 14:00] VITALS: BP 145/67
[2022-06-20] MEDS ORDERED: DIAPER RELIEF PASTE (DESITIN) 60GM TOP PRN (16:45)
[2022-06-20] MEDS: LACTOBACILLUS ACIDOPHILUS CAP (BACID) PO SCH (18:02)
[2022-06-20 20:54] VITALS: BP 164/90
[2022-06-21 05:53] VITALS: BP 137/67
[2022-06-21] MEDS ORDERED: VANCOMYCIN HCL 1,000 MG, VIAL MATE ADAPTER 1 EACH in D5W 250 ML IV ONE (06:00)
[2022-06-21] MEDS: ACETAMINOPHEN TAB 650MG DOSE (2X325MG) PO PRN ×2 (06:02→20:53)
[2022-06-21 06:15] LABS: BASO # 0.1 10^3/uL (0.0-0.2); BASO % 0.8 % (0.0-1.0); EOS # 0.3 10^3/uL (0.0-0.5); EOS % 3.8 % (0.0-3.0); HEMATOCRIT 36.5 % (36.0-47.0); HEMOGLOBIN 11.7 g/dl (12.0-15.5); LYMPH # 1.9 10^3/uL (1.5-5.0); LYMPH % 22.1 % (24.0-44.0); MEAN CORPUSCULAR HEMOGLOBIN 27.1 pg (27.0-33.0); MEAN CORPUSCULAR HGB CONC 32.1 g/dl (32.0-36.5); MEAN CORPUSCULAR VOLUME 84.7 fl (80.0-96.0); MONO # 0.8 10^3/uL (0.0-0.8); MONO % 9.3 % (2.0-8.0); NEUTROPHILS # 5.5 10^3/uL (1.5-8.5); NEUTROPHILS % 63.5 % (36.0-66.0); PLATELET COUNT, AUTOMATED 442 10^3/uL (150-450); RED BLOOD COUNT 4.31 10^6/uL (4.00-5.40); WHITE BLOOD COUNT 8.6 10^3/uL (4.0-10.0)
[2022-06-21 06:39] LABS: MAGNESIUM LEVEL 1.7 MG/DL (1.8-2.4)
[2022-06-21 06:41] LABS: ALBUMIN 2.3 G/DL (3.2-5.2); ALKALINE PHOSPHATASE 78 U/L (46-116); ALT/SGPT < 9 U/L (7.0-40); AST/SGOT 14 U/L (<34); BILIRUBIN,TOTAL 0.4 MG/DL (0.3-1.2); BLOOD UREA NITROGEN 23 MG/DL (9-23); CALCIUM LEVEL 9.7 MG/DL (8.3-10.6); CARBON DIOXIDE LEVEL 26 MMOL/L (20-31); CHLORIDE LEVEL 103 MMOL/L (98-107); CREATININE FOR GFR 0.78 MG/DL (0.55-1.30); GLOMERULAR FILTRATION RATE > 60.0 (>32); GLUCOSE, FASTING 93 MG/DL (74-106); POTASSIUM SERUM 3.4 MMOL/L (3.5-5.1); SODIUM LEVEL 139 MMOL/L (136-145); TOTAL PROTEIN 5.3 G/DL (5.7-8.2)
[2022-06-21] MEDS ORDERED: MAGNESIUM OXIDE 400MG TAB (MAG-OX) PO ONE (07:40)
[2022-06-21] MEDS ORDERED: POTASSIUM CHLORIDE 10MEQ SR TABLET PO ONE (07:40)
[2022-06-21] MEDS ORDERED: POTASSIUM CHLORIDE 10% LIQ 20MEQ/15ML UDC PO ONE (08:30)
[2022-06-21] MEDS: VITAMIN D 1,000 INTERNATIONAL UNITS TABLET PO SCH (08:45)
[2022-06-21] MEDS: CHLORTHALIDONE 25 MG TAB PO SCH (08:45)
[2022-06-21] MEDS: LACTOBACILLUS ACIDOPHILUS CAP (BACID) PO SCH ×2 (08:45→17:56)
[2022-06-21 14:00] VITALS: BP 133/67
[2022-06-21] MEDS ORDERED: LIDOCAINE 1% MDV 20ML VIAL As Ordered ONE (16:04)
[2022-06-21 21:01] VITALS: BP 130/88
[2022-06-22] MEDS ORDERED: SODIUM CHLORIDE 0.9% INJ 10 ML SYR IV PRN (02:50)
[2022-06-22 05:52] VITALS: BP 121/60
[2022-06-22 07:14] LABS: BASO # 0.1 10^3/uL (0.0-0.2); EOS # 0.4 10^3/uL (0.0-0.5); EOS % 4.8 % (0.0-3.0); HEMATOCRIT 34.7 % (36.0-47.0); LYMPH # 1.7 10^3/uL (1.5-5.0); LYMPH % 23.3 % (24.0-44.0); MEAN CORPUSCULAR HGB CONC 31.7 g/dl (32.0-36.5); MEAN CORPUSCULAR VOLUME 85.3 fl (80.0-96.0); MONO # 0.7 10^3/uL (0.0-0.8); MONO % 9.8 % (2.0-8.0); NEUTROPHILS # 4.4 10^3/uL (1.5-8.5); NEUTROPHILS % 60.3 % (36.0-66.0); PLATELET COUNT, AUTOMATED 385 10^3/uL (150-450); RED BLOOD COUNT 4.07 10^6/uL (4.00-5.40); WHITE BLOOD COUNT 7.3 10^3/uL (4.0-10.0)
[2022-06-22 07:39] LABS: MAGNESIUM LEVEL 1.5 MG/DL (1.8-2.4)
[2022-06-22 07:40] LABS: VANCOMYCIN LEVEL TROUGH 18.3 UG/ML (10.0-20.0)
[2022-06-22 07:41] LABS: ALBUMIN 2.1 G/DL (3.2-5.2); ALKALINE PHOSPHATASE 70 U/L (46-116); ALT/SGPT < 9 U/L (7.0-40); AST/SGOT 12 U/L (<34); BILIRUBIN,TOTAL 0.4 MG/DL (0.3-1.2); BLOOD UREA NITROGEN 22 MG/DL (9-23); CALCIUM LEVEL 9.1 MG/DL (8.3-10.6); CARBON DIOXIDE LEVEL 28 MMOL/L (20-31); CHLORIDE LEVEL 106 MMOL/L (98-107); CREATININE FOR GFR 0.93 MG/DL (0.55-1.30); GLOMERULAR FILTRATION RATE > 60.0 (>32); GLUCOSE, FASTING 92 MG/DL (74-106); POTASSIUM SERUM 3.6 MMOL/L (3.5-5.1); SODIUM LEVEL 141 MMOL/L (136-145); TOTAL PROTEIN 4.2 G/DL (5.7-8.2)
[2022-06-22] MEDS ORDERED: VANCOMYCIN HCL 750 MG, VIAL MATE ADAPTER 1 EACH in D5W 250 ML IV SCH (08:00)
[2022-06-22] MEDS ORDERED: VANCOMYCIN HCL 1,000 MG, VIAL MATE ADAPTER 1 EACH in D5W 250 ML IV SCH (08:00)
[2022-06-22] MEDS: CHLORTHALIDONE 25 MG TAB PO SCH (08:30)
[2022-06-22] MEDS: VITAMIN D 1,000 INTERNATIONAL UNITS TABLET PO SCH (08:31)
[2022-06-22] MEDS: LACTOBACILLUS ACIDOPHILUS CAP (BACID) PO SCH (08:31)
[2022-06-22] MEDS ORDERED: SODIUM CHLORIDE 0.9% INJ 10 ML SYR IV SCH ×2 (09:00)
[2022-06-22] MEDS ORDERED: MAGNESIUM OXIDE 400MG TAB (MAG-OX) PO ONE (09:00)
[2022-06-22] MEDS: oxyCODONE 5MG TAB PO PRN (09:31)
== END 2022-06-22 12:10 | DRG 856 ==
LOC: M MS5PR 18:24
PROVIDERS: ADMIT Family Medicine; ATTEND Family Medicine
PROC: 0PPL04Z Removal of Internal Fixation Device from Left Ulna, Open Approach (ICD-10-PCS; 2022-06-17)
PROC: 0LQ40ZZ Repair Left Upper Arm Tendon, Open Approach (ICD-10-PCS; principal; 2022-06-17 19:00)
PROC: 02HV33Z Insertion of Infusion Device into Superior Vena Cava, Percutaneous Approach (ICD-10-PCS; 2022-06-21)
DX: T81.42XA Infection following a procedure, deep incisional surgical site, initial encounter (principal); U07.1 COVID-19; S52.022K Displaced fracture of olecranon process without intraarticular extension of left ulna, subsequent encounter for closed fracture with nonunion; M00.822 Arthritis due to other bacteria, left elbow; T81.32XA Disruption of internal operation (surgical) wound, not elsewhere classified, initial encounter; N17.9 Acute kidney failure, unspecified; K52.1 Toxic gastroenteritis and colitis; I10 Essential (primary) hypertension; M81.0 Age-related osteoporosis without current pathological fracture; E87.6 Hypokalemia; B95.62 Methicillin resistant Staphylococcus aureus infection as the cause of diseases classified elsewhere; T36.8X5A Adverse effect of other systemic antibiotics, initial encounter; Z66 Do not resuscitate; Z96.641 Presence of right artificial hip joint; Z85.3 Personal history of malignant neoplasm of breast; Z79.899 Other long term (current) drug therapy

== ENCOUNTER → 2022-06-17 | Outpatient (CLI) | payer MEDICARE, OTHER ==
[~2022-06-17] MED LIST changes: +ADVI200C8 PO; +CHLO125TA PO; +PHEN15SP5
== END ==
LOC: M SOG 15:48
PROVIDERS: ATTEND Orthopaedic Surgery Adult Reconstructive Orthopaedic Surgery
DX: S52.032D Displaced fracture of olecranon process with intraarticular extension of left ulna, subsequent encounter for closed fracture with routine healing (principal); Z96.642 Presence of left artificial hip joint

== ENCOUNTER 2022-06-22 11:32 | Inpatient (IN) | payer MEDICARE, OTHER ==
[~2022-06-22] VITALS: Ht 167.6 cm; Wt 67.0 kg
[~2022-06-22 11:32] MED LIST changes: +ADVI200C8 PO; +CHLO125TA PO; +PHEN15SP5
[2022-06-22 12:32] VITALS: BP 154/72
[2022-06-22] MEDS ORDERED: ONDANSETRON 4MG TAB PO PRN (13:25)
[2022-06-22 14:00] VITALS: BP 126/73
[2022-06-22] MEDS ORDERED: HOME MED LIST COMPLETE! XX SCH (14:00)
[2022-06-22] MEDS: REMEDY PHYTOPLEX Z-GUARD PASTE 113GM TUBE (FROM STOREROOM PRODUCT) TOP SCH ×2 (16:00→21:00)
[2022-06-22] MEDS: LACTOBACILLUS ACIDOPHILUS CAP (BACID) PO SCH ×2 (18:19→21:30)
[2022-06-22] MEDS: ACETAMINOPHEN 500 MG TAB PO SCH ×2 (18:19→21:31)
[2022-06-22] MEDS: SODIUM CHLORIDE 0.9% INJ 10 ML SYR IV SCH (18:20)
[2022-06-22 20:00] VITALS: BP 130/65
[2022-06-22] MEDS: FLUTICASONE PROP 0.05% NASAL SPRAY 16 GM (FLONASE) NARES SCH (21:00)
[2022-06-22] MEDS: LOPERAMIDE 2 MG CAPLET PO SCH (21:31)
[2022-06-22] MEDS: HEPARIN SOD (PORCINE) 5000UNITS/ML 1ML VIAL/SYRINGE SC SCH (21:31)
[2022-06-23 06:00] VITALS: BP 130/70
[2022-06-23] MEDS: SODIUM CHLORIDE 0.9% INJ 10 ML SYR IV SCH ×2 (06:58→17:42)
[2022-06-23 07:10] LABS: BASO # 0.1 10^3/uL (0.0-0.2); BASO % 1.4 % (0.0-1.0); EOS # 0.3 10^3/uL (0.0-0.5); EOS % 4.3 % (0.0-3.0); HEMATOCRIT 33.9 % (36.0-47.0); HEMOGLOBIN 10.9 g/dl (12.0-15.5); LYMPH # 1.8 10^3/uL (1.5-5.0); LYMPH % 27.3 % (24.0-44.0); MEAN CORPUSCULAR HEMOGLOBIN 27.7 pg (27.0-33.0); MEAN CORPUSCULAR HGB CONC 32.2 g/dl (32.0-36.5); MONO # 0.6 10^3/uL (0.0-0.8); MONO % 8.9 % (2.0-8.0); NEUTROPHILS # 3.8 10^3/uL (1.5-8.5); NEUTROPHILS % 57.6 % (36.0-66.0); PLATELET COUNT, AUTOMATED 355 10^3/uL (150-450); RED BLOOD COUNT 3.94 10^6/uL (4.00-5.40); WHITE BLOOD COUNT 6.6 10^3/uL (4.0-10.0)
[2022-06-23 07:43] LABS: ALBUMIN 2.1 G/DL (3.2-5.2); ALKALINE PHOSPHATASE 73 U/L (46-116); ALT/SGPT < 9 U/L (7.0-40); AST/SGOT 13 U/L (<34); BILIRUBIN,TOTAL 0.4 MG/DL (0.3-1.2); BLOOD UREA NITROGEN 25 MG/DL (9-23); CALCIUM LEVEL 9.1 MG/DL (8.3-10.6); CARBON DIOXIDE LEVEL 30 MMOL/L (20-31); CHLORIDE LEVEL 103 MMOL/L (98-107); CREATININE FOR GFR 1.05 MG/DL (0.55-1.30); GLOMERULAR FILTRATION RATE 52.7 (>32); GLUCOSE, FASTING 84 MG/DL (74-106); POTASSIUM SERUM 3.6 MMOL/L (3.5-5.1); SODIUM LEVEL 138 MMOL/L (136-145); TOTAL PROTEIN 4.7 G/DL (5.7-8.2)
[2022-06-23 08:00] VITALS: BP 126/76
[2022-06-23] MEDS ORDERED: VANCOMYCIN HCL 750 MG, VIAL MATE ADAPTER 1 EACH in D5W 250 ML IV SCH (08:00)
[2022-06-23] MEDS: MAGNESIUM OXIDE 400MG TAB (MAG-OX) PO SCH (08:09)
[2022-06-23] MEDS: LOPERAMIDE 2 MG CAPLET PO SCH ×2 (08:10→20:47)
[2022-06-23] MEDS: PANTOPRAZOLE 40MG TAB (PROTONIX) PO SCH (08:10)
[2022-06-23] MEDS: HEPARIN SOD (PORCINE) 5000UNITS/ML 1ML VIAL/SYRINGE SC SCH ×2 (08:10→20:45)
[2022-06-23] MEDS: ACETAMINOPHEN 500 MG TAB PO SCH ×3 (08:10→20:47)
[2022-06-23] MEDS: LACTOBACILLUS ACIDOPHILUS CAP (BACID) PO SCH ×4 (08:10→20:46)
[2022-06-23] MEDS: REMEDY PHYTOPLEX Z-GUARD PASTE 113GM TUBE (FROM STOREROOM PRODUCT) TOP SCH ×3 (08:11→20:48)
[2022-06-23] MEDS: FLUTICASONE PROP 0.05% NASAL SPRAY 16 GM (FLONASE) NARES SCH ×2 (08:11→20:47)
[2022-06-23] MEDS ORDERED: CHLORTHALIDONE 25 MG TAB PO SCH (09:00)
[2022-06-23 14:00] VITALS: BP 129/65
[2022-06-23 20:00] VITALS: BP 132/63
[2022-06-23] MEDS: MIRTAZAPINE 7.5MG PER 1/2 TABLET PO SCH (20:46)
[2022-06-24] MEDS: SODIUM CHLORIDE 0.9% INJ 10 ML SYR IV SCH ×2 (07:10→16:29)
[2022-06-24 07:11] VITALS: BP 120/60
[2022-06-24 07:24] LABS: BASO # 0.1 10^3/uL (0.0-0.2); BASO % 1.7 % (0.0-1.0); EOS # 0.4 10^3/uL (0.0-0.5); EOS % 5.9 % (0.0-3.0); HEMATOCRIT 33.9 % (36.0-47.0); HEMOGLOBIN 10.5 g/dl (12.0-15.5); LYMPH # 1.8 10^3/uL (1.5-5.0); LYMPH % 28.2 % (24.0-44.0); MEAN CORPUSCULAR HEMOGLOBIN 26.7 pg (27.0-33.0); MEAN CORPUSCULAR VOLUME 86.3 fl (80.0-96.0); MONO # 0.7 10^3/uL (0.0-0.8); MONO % 11.3 % (2.0-8.0); NEUTROPHILS # 3.3 10^3/uL (1.5-8.5); NEUTROPHILS % 52.4 % (36.0-66.0); PLATELET COUNT, AUTOMATED 337 10^3/uL (150-450); RED BLOOD COUNT 3.93 10^6/uL (4.00-5.40); WHITE BLOOD COUNT 6.3 10^3/uL (4.0-10.0)
[2022-06-24 07:53] LABS: VANCOMYCIN LEVEL TROUGH 20.1 UG/ML (10.0-20.0)
[2022-06-24 07:54] LABS: CREATININE FOR GFR 1.1 MG/DL (0.55-1.30); GLOMERULAR FILTRATION RATE 49.9 (>32); POTASSIUM SERUM 3.7 MMOL/L (3.5-5.1)
[2022-06-24] MEDS: PANTOPRAZOLE 40MG TAB (PROTONIX) PO SCH (08:49)
[2022-06-24] MEDS: LACTOBACILLUS ACIDOPHILUS CAP (BACID) PO SCH ×4 (08:49→20:56)
[2022-06-24] MEDS: MAGNESIUM OXIDE 400MG TAB (MAG-OX) PO SCH (08:49)
[2022-06-24] MEDS: LOPERAMIDE 2 MG CAPLET PO SCH ×2 (08:49→20:56)
[2022-06-24] MEDS: oxyCODONE 5MG TAB PO PRN (08:50)
[2022-06-24] MEDS: ACETAMINOPHEN 500 MG TAB PO SCH ×3 (08:50→20:57)
[2022-06-24] MEDS: FLUTICASONE PROP 0.05% NASAL SPRAY 16 GM (FLONASE) NARES SCH ×2 (08:51→20:57)
[2022-06-24] MEDS: REMEDY PHYTOPLEX Z-GUARD PASTE 113GM TUBE (FROM STOREROOM PRODUCT) TOP SCH ×3 (08:51→20:58)
[2022-06-24] MEDS: HEPARIN SOD (PORCINE) 5000UNITS/ML 1ML VIAL/SYRINGE SC SCH ×2 (08:51→20:57)
[2022-06-24 11:44] LABS: MAGNESIUM LEVEL 1.8 MG/DL (1.8-2.4)
[2022-06-24 14:00] VITALS: BP 105/55
[2022-06-24] MEDS: VANCOMYCIN HCL 500 MG in D5W MINI-BAG PLUS 100 ML IV SCH (16:40)
[2022-06-24 20:00] VITALS: BP 104/53
[2022-06-24] MEDS: MIRTAZAPINE 7.5MG PER 1/2 TABLET PO SCH (20:56)
[2022-06-25] MEDS: SODIUM CHLORIDE 0.9% INJ 10 ML SYR IV SCH ×2 (05:21→17:19)
[2022-06-25 06:00] VITALS: BP 136/61
[2022-06-25] MEDS: ACETAMINOPHEN 500 MG TAB PO SCH ×3 (08:20→20:49)
[2022-06-25] MEDS: PANTOPRAZOLE 40MG TAB (PROTONIX) PO SCH (08:20)
[2022-06-25] MEDS: LACTOBACILLUS ACIDOPHILUS CAP (BACID) PO SCH ×4 (08:20→20:50)
[2022-06-25] MEDS: LOPERAMIDE 2 MG CAPLET PO SCH ×2 (08:20→20:50)
[2022-06-25] MEDS: HEPARIN SOD (PORCINE) 5000UNITS/ML 1ML VIAL/SYRINGE SC SCH ×2 (08:21→20:50)
[2022-06-25] MEDS: MAGNESIUM OXIDE 400MG TAB (MAG-OX) PO SCH (08:21)
[2022-06-25] MEDS: FLUTICASONE PROP 0.05% NASAL SPRAY 16 GM (FLONASE) NARES SCH ×2 (08:21→20:51)
[2022-06-25] MEDS: REMEDY PHYTOPLEX Z-GUARD PASTE 113GM TUBE (FROM STOREROOM PRODUCT) TOP SCH ×3 (08:25→20:51)
[2022-06-25] MEDS ORDERED: CHLORTHALIDONE 12.5MG PER 1/2 TABLET PO SCH (09:00)
[2022-06-25] MEDS: SODIUM CHLORIDE 0.9% INJ 10 ML SYR IV PRN (11:34)
[2022-06-25 14:00] VITALS: BP 100/53
[2022-06-25] MEDS: VANCOMYCIN HCL 500 MG in D5W MINI-BAG PLUS 100 ML IV SCH (16:09)
[2022-06-25 20:00] VITALS: BP 105/54
[2022-06-25] MEDS: MIRTAZAPINE 7.5MG PER 1/2 TABLET PO SCH (20:50)
[2022-06-26 06:00] VITALS: BP 107/58
[2022-06-26] MEDS: SODIUM CHLORIDE 0.9% INJ 10 ML SYR IV SCH ×2 (06:20→16:32)
[2022-06-26] MEDS: LACTOBACILLUS ACIDOPHILUS CAP (BACID) PO SCH ×4 (07:20→21:03)
[2022-06-26] MEDS: PANTOPRAZOLE 40MG TAB (PROTONIX) PO SCH (07:21)
[2022-06-26] MEDS: HEPARIN SOD (PORCINE) 5000UNITS/ML 1ML VIAL/SYRINGE SC SCH ×2 (07:23→21:04)
[2022-06-26] MEDS: ACETAMINOPHEN 500 MG TAB PO SCH ×3 (07:23→21:03)
[2022-06-26] MEDS: MAGNESIUM OXIDE 400MG TAB (MAG-OX) PO SCH (07:23)
[2022-06-26] MEDS: LOPERAMIDE 2 MG CAPLET PO SCH ×2 (07:24→21:00)
[2022-06-26] MEDS: FLUTICASONE PROP 0.05% NASAL SPRAY 16 GM (FLONASE) NARES SCH ×2 (07:24→21:00)
[2022-06-26] MEDS: REMEDY PHYTOPLEX Z-GUARD PASTE 113GM TUBE (FROM STOREROOM PRODUCT) TOP SCH ×3 (08:00→21:00)
[2022-06-26] MEDS: SODIUM CHLORIDE 0.9% INJ 10 ML SYR IV PRN ×2 (09:02→14:21)
[2022-06-26 09:50] LABS: CALCIUM LEVEL 9.1 MG/DL (8.3-10.6); CREATININE FOR GFR 1.51 MG/DL (0.55-1.30); GLOMERULAR FILTRATION RATE 34.6 (>32)
[2022-06-26] MEDS: oxyCODONE 5MG TAB PO PRN ×2 (11:16→21:12)
[2022-06-26 14:00] VITALS: BP 127/58
[2022-06-26] MEDS ORDERED: NS 1,000 ML IV SCH (15:15)
[2022-06-26 20:00] VITALS: BP 130/62
[2022-06-26] MEDS: MIRTAZAPINE 7.5MG PER 1/2 TABLET PO SCH (21:03)
[2022-06-26 21:04] VITALS: BP 130/62
[2022-06-26] MEDS: VANCOMYCIN HCL 500 MG in D5W MINI-BAG PLUS 100 ML IV SCH (21:05)
[2022-06-27 06:00] VITALS: BP 140/65
[2022-06-27] MEDS: SODIUM CHLORIDE 0.9% INJ 10 ML SYR IV SCH ×2 (06:47→17:51)
[2022-06-27 07:12] LABS: BASO # 0.1 10^3/uL (0.0-0.2); BASO % 1.1 % (0.0-1.0); EOS # 0.3 10^3/uL (0.0-0.5); EOS % 4.3 % (0.0-3.0); HEMATOCRIT 30.7 % (36.0-47.0); HEMOGLOBIN 9.6 g/dl (12.0-15.5); LYMPH # 1.6 10^3/uL (1.5-5.0); LYMPH % 23.7 % (24.0-44.0); MEAN CORPUSCULAR HEMOGLOBIN 27.5 pg (27.0-33.0); MEAN CORPUSCULAR HGB CONC 31.3 g/dl (32.0-36.5); MONO # 0.7 10^3/uL (0.0-0.8); MONO % 10.5 % (2.0-8.0); NEUTROPHILS # 3.9 10^3/uL (1.5-8.5); NEUTROPHILS % 59.8 % (36.0-66.0); PLATELET COUNT, AUTOMATED 287 10^3/uL (150-450); RED BLOOD COUNT 3.49 10^6/uL (4.00-5.40); WHITE BLOOD COUNT 6.6 10^3/uL (4.0-10.0)
[2022-06-27 07:41] LABS: CALCIUM LEVEL 8.3 MG/DL (8.3-10.6); CREATININE FOR GFR 1.35 MG/DL (0.55-1.30); GLOMERULAR FILTRATION RATE 39.4 (>32); POTASSIUM SERUM 5.1 MMOL/L (3.5-5.1)
[2022-06-27] MEDS: oxyCODONE 5MG TAB PO PRN ×2 (07:56→16:31)
[2022-06-27] MEDS: LACTOBACILLUS ACIDOPHILUS CAP (BACID) PO SCH ×4 (07:56→20:12)
[2022-06-27] MEDS ORDERED: NS 1,000 ML IV SCH (08:45)
[2022-06-27] MEDS: MAGNESIUM OXIDE 400MG TAB (MAG-OX) PO SCH (09:45)
[2022-06-27] MEDS: LOPERAMIDE 2 MG CAPLET PO SCH ×2 (09:45→20:12)
[2022-06-27] MEDS: PANTOPRAZOLE 40MG TAB (PROTONIX) PO SCH (09:45)
[2022-06-27] MEDS: REMEDY PHYTOPLEX Z-GUARD PASTE 113GM TUBE (FROM STOREROOM PRODUCT) TOP SCH ×3 (09:46→20:13)
[2022-06-27] MEDS: ACETAMINOPHEN 500 MG TAB PO SCH ×4 (09:46→20:12)
[2022-06-27] MEDS: HEPARIN SOD (PORCINE) 5000UNITS/ML 1ML VIAL/SYRINGE SC SCH ×2 (09:46→20:12)
[2022-06-27] MEDS: FLUTICASONE PROP 0.05% NASAL SPRAY 16 GM (FLONASE) NARES SCH ×2 (09:46→20:13)
[2022-06-27 14:00] VITALS: BP 129/79
[2022-06-27 20:00] VITALS: BP 120/60
[2022-06-27] MEDS: MIRTAZAPINE 7.5MG PER 1/2 TABLET PO SCH (20:12)
[2022-06-27] MEDS: VANCOMYCIN HCL 500 MG in D5W MINI-BAG PLUS 100 ML IV SCH (20:59)
[2022-06-28] MEDS: SODIUM CHLORIDE 0.9% INJ 10 ML SYR IV SCH ×2 (04:58→18:04)
[2022-06-28 04:59] VITALS: BP 105/60
[2022-06-28 05:47] LABS: CALCIUM LEVEL 8.8 MG/DL (8.3-10.6); CREATININE FOR GFR 1.33 MG/DL (0.55-1.30); GLOMERULAR FILTRATION RATE 40.1 (>32); POTASSIUM SERUM 5.4 MMOL/L (3.5-5.1)
[2022-06-28] MEDS: oxyCODONE 5MG TAB PO PRN (06:55)
[2022-06-28] MEDS: LACTOBACILLUS ACIDOPHILUS CAP (BACID) PO SCH ×4 (08:34→20:18)
[2022-06-28] MEDS: ACETAMINOPHEN 500 MG TAB PO SCH ×3 (08:36→20:18)
[2022-06-28] MEDS: PANTOPRAZOLE 40MG TAB (PROTONIX) PO SCH (08:36)
[2022-06-28] MEDS: LOPERAMIDE 2 MG CAPLET PO SCH ×2 (08:36→21:00)
[2022-06-28] MEDS: FLUTICASONE PROP 0.05% NASAL SPRAY 16 GM (FLONASE) NARES SCH ×3 (08:37→20:19)
[2022-06-28] MEDS: HEPARIN SOD (PORCINE) 5000UNITS/ML 1ML VIAL/SYRINGE SC SCH ×2 (08:37→20:18)
[2022-06-28] MEDS: MAGNESIUM OXIDE 400MG TAB (MAG-OX) PO SCH (08:38)
[2022-06-28] MEDS: REMEDY PHYTOPLEX Z-GUARD PASTE 113GM TUBE (FROM STOREROOM PRODUCT) TOP SCH ×3 (08:39→20:19)
[2022-06-28] MEDS ORDERED: PATIROMER SORBITEX CALCIUM 8.4 GM POWDER PACKET (VELTASSA) PO ONE (10:00)
[2022-06-28 14:00] VITALS: BP 121/59
[2022-06-28] MEDS: oxyCODONE 5MG TAB PO SCH (18:04)
[2022-06-28 20:00] VITALS: BP 128/64
[2022-06-28] MEDS: traZODone 25MG PER 1/2 TABLET PO SCH (20:18)
[2022-06-28] MEDS: MIRTAZAPINE 7.5MG PER 1/2 TABLET PO SCH (20:18)
[2022-06-28] MEDS: VANCOMYCIN HCL 500 MG in D5W MINI-BAG PLUS 100 ML IV SCH (20:19)
[2022-06-28] MEDS: SODIUM CHLORIDE 0.9% INJ 10 ML SYR IV PRN (21:37)
[2022-06-29 06:00] VITALS: BP 122/60
[2022-06-29] MEDS: oxyCODONE 5MG TAB PO SCH ×3 (06:29→15:10)
[2022-06-29] MEDS: SODIUM CHLORIDE 0.9% INJ 10 ML SYR IV SCH ×2 (06:30→18:10)
[2022-06-29 06:53] LABS: BASO # 0.1 10^3/uL (0.0-0.2); BASO % 1.3 % (0.0-1.0); EOS # 0.3 10^3/uL (0.0-0.5); EOS % 5.3 % (0.0-3.0); HEMATOCRIT 31.3 % (36.0-47.0); HEMOGLOBIN 9.7 g/dl (12.0-15.5); LYMPH # 1.9 10^3/uL (1.5-5.0); LYMPH % 29.7 % (24.0-44.0); MEAN CORPUSCULAR HEMOGLOBIN 27.3 pg (27.0-33.0); MEAN CORPUSCULAR VOLUME 88.2 fl (80.0-96.0); MONO # 0.7 10^3/uL (0.0-0.8); MONO % 10.5 % (2.0-8.0); NEUTROPHILS # 3.3 10^3/uL (1.5-8.5); NEUTROPHILS % 52.6 % (36.0-66.0); PLATELET COUNT, AUTOMATED 289 10^3/uL (150-450); RED BLOOD COUNT 3.55 10^6/uL (4.00-5.40); WHITE BLOOD COUNT 6.3 10^3/uL (4.0-10.0)
[2022-06-29 07:22] LABS: CALCIUM LEVEL 8.7 MG/DL (8.3-10.6); CREATININE FOR GFR 1.28 MG/DL (0.55-1.30); GLOMERULAR FILTRATION RATE 41.9 (>32); POTASSIUM SERUM 5.7 MMOL/L (3.5-5.1)
[2022-06-29] MEDS ORDERED: NS 1,000 ML IV SCH (07:30)
[2022-06-29] MEDS: PANTOPRAZOLE 40MG TAB (PROTONIX) PO SCH (07:57)
[2022-06-29] MEDS: ACETAMINOPHEN 500 MG TAB PO SCH ×3 (07:57→21:46)
[2022-06-29] MEDS: LACTOBACILLUS ACIDOPHILUS CAP (BACID) PO SCH ×4 (07:58→21:46)
[2022-06-29] MEDS: LOPERAMIDE 2 MG CAPLET PO SCH (07:58)
[2022-06-29] MEDS: MAGNESIUM OXIDE 400MG TAB (MAG-OX) PO SCH (07:58)
[2022-06-29] MEDS: HEPARIN SOD (PORCINE) 5000UNITS/ML 1ML VIAL/SYRINGE SC SCH ×2 (07:59→21:47)
[2022-06-29] MEDS: FLUTICASONE PROP 0.05% NASAL SPRAY 16 GM (FLONASE) NARES SCH ×2 (07:59→21:00)
[2022-06-29] MEDS: REMEDY PHYTOPLEX Z-GUARD PASTE 113GM TUBE (FROM STOREROOM PRODUCT) TOP SCH ×3 (07:59→21:00)
[2022-06-29] MEDS ORDERED: PATIROMER SORBITEX CALCIUM 8.4 GM POWDER PACKET (VELTASSA) PO ONE (09:00)
[2022-06-29] MEDS: oxyCODONE 5MG TAB PO PRN ×2 (10:34→21:59)
[2022-06-29] MEDS ORDERED: FUROSEMIDE 20MG/2ML VIAL IV ONE (12:45)
[2022-06-29 14:00] VITALS: BP 131/60
[2022-06-29] MEDS ORDERED: MIRALAX *UNIT DOSE* 17GM PACKET PO PRN (14:35)
[2022-06-29 20:00] VITALS: BP 140/64
[2022-06-29] MEDS: traZODone 25MG PER 1/2 TABLET PO SCH (21:46)
[2022-06-29] MEDS: MIRTAZAPINE 7.5MG PER 1/2 TABLET PO SCH (21:46)
[2022-06-29] MEDS: VANCOMYCIN HCL 500 MG in D5W MINI-BAG PLUS 100 ML IV SCH (21:47)
[2022-06-30 06:32] VITALS: BP 128/64
[2022-06-30] MEDS: oxyCODONE 5MG TAB PO SCH ×3 (06:43→15:16)
[2022-06-30] MEDS: SODIUM CHLORIDE 0.9% INJ 10 ML SYR IV SCH ×2 (06:44→17:09)
[2022-06-30 07:30] LABS: CALCIUM LEVEL 8.9 MG/DL (8.3-10.6); CREATININE FOR GFR 1.33 MG/DL (0.55-1.30); GLOMERULAR FILTRATION RATE 40.1 (>32); POTASSIUM SERUM 5.6 MMOL/L (3.5-5.1)
[2022-06-30] MEDS: PANTOPRAZOLE 40MG TAB (PROTONIX) PO SCH (08:28)
[2022-06-30] MEDS: LACTOBACILLUS ACIDOPHILUS CAP (BACID) PO SCH ×4 (08:28→21:15)
[2022-06-30] MEDS: HEPARIN SOD (PORCINE) 5000UNITS/ML 1ML VIAL/SYRINGE SC SCH (08:28)
[2022-06-30] MEDS: ACETAMINOPHEN 500 MG TAB PO SCH ×3 (08:28→21:00)
[2022-06-30] MEDS: MAGNESIUM OXIDE 400MG TAB (MAG-OX) PO SCH (08:28)
[2022-06-30] MEDS: REMEDY PHYTOPLEX Z-GUARD PASTE 113GM TUBE (FROM STOREROOM PRODUCT) TOP SCH ×3 (08:29→21:00)
[2022-06-30] MEDS: FLUTICASONE PROP 0.05% NASAL SPRAY 16 GM (FLONASE) NARES SCH ×2 (08:29→21:00)
[2022-06-30] MEDS ORDERED: FUROSEMIDE 20MG/2ML VIAL IV ONE (10:30)
[2022-06-30] MEDS: SODIUM CHLORIDE 0.9% INJ 10 ML SYR IV PRN (11:18)
[2022-06-30] MEDS ORDERED: SOD POLYSTYRENE SULFONATE SUSP 15GM 60ML UD PO ONE (12:00)
[2022-06-30 14:00] VITALS: BP 112/64
[2022-06-30 20:00] VITALS: BP 104/52
[2022-06-30] MEDS: traZODone 25MG PER 1/2 TABLET PO SCH (21:15)
[2022-06-30] MEDS: MIRTAZAPINE 7.5MG PER 1/2 TABLET PO SCH (21:15)
[2022-06-30] MEDS: oxyCODONE 5MG TAB PO PRN (21:16)
[2022-06-30] MEDS: VANCOMYCIN HCL 500 MG in D5W MINI-BAG PLUS 100 ML IV SCH (21:16)
[2022-07-01 06:06] VITALS: BP 112/58
[2022-07-01] MEDS: oxyCODONE 5MG TAB PO SCH ×2 (06:43→11:36)
[2022-07-01] MEDS: SODIUM CHLORIDE 0.9% INJ 10 ML SYR IV SCH ×2 (06:43→18:22)
[2022-07-01 07:03] LABS: BASO # 0.1 10^3/uL (0.0-0.2); BASO % 0.9 % (0.0-1.0); EOS # 0.4 10^3/uL (0.0-0.5); EOS % 4.6 % (0.0-3.0); HEMATOCRIT 29.2 % (36.0-47.0); LYMPH # 1.3 10^3/uL (1.5-5.0); LYMPH % 17.6 % (24.0-44.0); MEAN CORPUSCULAR HEMOGLOBIN 27.5 pg (27.0-33.0); MEAN CORPUSCULAR HGB CONC 30.8 g/dl (32.0-36.5); MEAN CORPUSCULAR VOLUME 89.3 fl (80.0-96.0); MONO # 0.7 10^3/uL (0.0-0.8); MONO % 9.3 % (2.0-8.0); NEUTROPHILS # 5.1 10^3/uL (1.5-8.5); NEUTROPHILS % 67.1 % (36.0-66.0); PLATELET COUNT, AUTOMATED 299 10^3/uL (150-450); RED BLOOD COUNT 3.27 10^6/uL (4.00-5.40); WHITE BLOOD COUNT 7.6 10^3/uL (4.0-10.0)
[2022-07-01 07:24] LABS: CALCIUM LEVEL 8.5 MG/DL (8.3-10.6); CREATININE FOR GFR 1.34 MG/DL (0.55-1.30); GLOMERULAR FILTRATION RATE 39.7 (>32); POTASSIUM SERUM 4.7 MMOL/L (3.5-5.1)
[2022-07-01] MEDS: REMEDY PHYTOPLEX Z-GUARD PASTE 113GM TUBE (FROM STOREROOM PRODUCT) TOP SCH ×3 (09:00→21:00)
[2022-07-01] MEDS: FLUTICASONE PROP 0.05% NASAL SPRAY 16 GM (FLONASE) NARES SCH ×2 (09:00→21:00)
[2022-07-01] MEDS: LACTOBACILLUS ACIDOPHILUS CAP (BACID) PO SCH ×4 (09:01→21:23)
[2022-07-01] MEDS: MAGNESIUM OXIDE 400MG TAB (MAG-OX) PO SCH (09:01)
[2022-07-01] MEDS: PANTOPRAZOLE 40MG TAB (PROTONIX) PO SCH (09:01)
[2022-07-01] MEDS: ACETAMINOPHEN 500 MG TAB PO SCH ×4 (09:03→21:23)
[2022-07-01 14:44] VITALS: BP 123/58
[2022-07-01] MEDS: CHLORTHALIDONE 25 MG TAB PO SCH (15:01)
[2022-07-01 20:00] VITALS: BP 124/59
[2022-07-01] MEDS: SODIUM CHLORIDE 0.9% INJ 10 ML SYR IV PRN ×3 (20:04→22:28)
[2022-07-01 20:41] LABS: VANCOMYCIN LEVEL TROUGH 19.5 UG/ML (10.0-20.0)
[2022-07-01] MEDS: MIRTAZAPINE 7.5MG PER 1/2 TABLET PO SCH (21:23)
[2022-07-01] MEDS: VANCOMYCIN HCL 500 MG in D5W MINI-BAG PLUS 100 ML IV SCH (21:23)
[2022-07-01] MEDS: traZODone 25MG PER 1/2 TABLET PO SCH (21:23)
[2022-07-01 23:33] LABS: C REACTIVE PROTEIN QUANTITATIV 1.5 MG/DL (<1.0)
[2022-07-02] MEDS: SODIUM CHLORIDE 0.9% INJ 10 ML SYR IV SCH ×2 (05:53→17:27)
[2022-07-02 06:00] VITALS: BP 132/61
[2022-07-02] MEDS: CHLORTHALIDONE 25 MG TAB PO SCH (08:27)
[2022-07-02] MEDS: LACTOBACILLUS ACIDOPHILUS CAP (BACID) PO SCH ×4 (08:32→21:08)
[2022-07-02] MEDS: PANTOPRAZOLE 40MG TAB (PROTONIX) PO SCH (08:32)
[2022-07-02] MEDS: MAGNESIUM OXIDE 400MG TAB (MAG-OX) PO SCH (08:32)
[2022-07-02] MEDS: ACETAMINOPHEN 500 MG TAB PO SCH ×3 (08:33→21:08)
[2022-07-02] MEDS: REMEDY PHYTOPLEX Z-GUARD PASTE 113GM TUBE (FROM STOREROOM PRODUCT) TOP SCH ×3 (08:33→21:09)
[2022-07-02] MEDS: FLUTICASONE PROP 0.05% NASAL SPRAY 16 GM (FLONASE) NARES SCH ×2 (08:33→21:00)
[2022-07-02 08:35] VITALS: BP 131/63
[2022-07-02 14:00] VITALS: BP 116/58
[2022-07-02 20:23] VITALS: BP 120/70
[2022-07-02] MEDS: traZODone 25MG PER 1/2 TABLET PO SCH (21:08)
[2022-07-02] MEDS: MIRTAZAPINE 7.5MG PER 1/2 TABLET PO SCH (21:08)
[2022-07-02] MEDS: VANCOMYCIN HCL 500 MG in D5W MINI-BAG PLUS 100 ML IV SCH (21:09)
[2022-07-02] MEDS: SODIUM CHLORIDE 0.9% INJ 10 ML SYR IV PRN (22:14)
[2022-07-03] MEDS: SODIUM CHLORIDE 0.9% INJ 10 ML SYR IV SCH ×2 (06:58→17:54)
[2022-07-03 07:10] VITALS: BP 102/68
[2022-07-03] MEDS: PANTOPRAZOLE 40MG TAB (PROTONIX) PO SCH (08:02)
[2022-07-03] MEDS: LACTOBACILLUS ACIDOPHILUS CAP (BACID) PO SCH ×4 (08:02→21:30)
[2022-07-03] MEDS: CHLORTHALIDONE 25 MG TAB PO SCH ×4 (08:03→09:00)
[2022-07-03] MEDS: MAGNESIUM OXIDE 400MG TAB (MAG-OX) PO SCH (08:03)
[2022-07-03] MEDS: ACETAMINOPHEN 500 MG TAB PO SCH ×3 (08:04→21:30)
[2022-07-03] MEDS: FLUTICASONE PROP 0.05% NASAL SPRAY 16 GM (FLONASE) NARES SCH ×2 (08:04→21:00)
[2022-07-03] MEDS: REMEDY PHYTOPLEX Z-GUARD PASTE 113GM TUBE (FROM STOREROOM PRODUCT) TOP SCH ×3 (08:04→21:31)
[2022-07-03 09:24] VITALS: BP 116/64
[2022-07-03 14:00] VITALS: BP 138/69
[2022-07-03] MEDS: SODIUM CHLORIDE 0.9% INJ 10 ML SYR IV PRN ×2 (20:04→22:30)
[2022-07-03 20:09] VITALS: BP 122/60
[2022-07-03] MEDS: traZODone 25MG PER 1/2 TABLET PO SCH (21:30)
[2022-07-03] MEDS: MIRTAZAPINE 7.5MG PER 1/2 TABLET PO SCH (21:30)
[2022-07-03] MEDS: VANCOMYCIN HCL 500 MG in D5W MINI-BAG PLUS 100 ML IV SCH (21:31)
[2022-07-04] MEDS: SODIUM CHLORIDE 0.9% INJ 10 ML SYR IV SCH ×2 (05:50→17:05)
[2022-07-04 05:51] VITALS: BP 110/60
[2022-07-04 06:41] LABS: CALCIUM LEVEL 9.1 MG/DL (8.3-10.6); CREATININE FOR GFR 1.26 MG/DL (0.55-1.30); GLOMERULAR FILTRATION RATE 42.7 (>32); POTASSIUM SERUM 4.5 MMOL/L (3.5-5.1)
[2022-07-04] MEDS: LACTOBACILLUS ACIDOPHILUS CAP (BACID) PO SCH ×4 (08:15→21:32)
[2022-07-04] MEDS: CHLORTHALIDONE 25 MG TAB PO SCH (08:15)
[2022-07-04] MEDS: MAGNESIUM OXIDE 400MG TAB (MAG-OX) PO SCH (08:15)
[2022-07-04] MEDS: ACETAMINOPHEN 500 MG TAB PO SCH ×3 (08:15→21:00)
[2022-07-04] MEDS: FLUTICASONE PROP 0.05% NASAL SPRAY 16 GM (FLONASE) NARES SCH ×2 (08:15→21:00)
[2022-07-04] MEDS: PANTOPRAZOLE 40MG TAB (PROTONIX) PO SCH (08:15)
[2022-07-04] MEDS: REMEDY PHYTOPLEX Z-GUARD PASTE 113GM TUBE (FROM STOREROOM PRODUCT) TOP SCH ×3 (08:16→21:00)
[2022-07-04] MEDS: HEPARIN SOD (PORCINE) 5000UNITS/ML 1ML VIAL/SYRINGE SQ SCH ×2 (09:00→21:32)
[2022-07-04] MEDS ORDERED: LOPERAMIDE 2 MG CAPLET PO ONE (13:05)
[2022-07-04 14:00] VITALS: BP 127/60
[2022-07-04 20:00] VITALS: BP 120/56
[2022-07-04] MEDS: VANCOMYCIN HCL 500 MG in D5W MINI-BAG PLUS 100 ML IV SCH (21:31)
[2022-07-04] MEDS: MIRTAZAPINE 7.5MG PER 1/2 TABLET PO SCH (21:32)
[2022-07-04] MEDS: traZODone 25MG PER 1/2 TABLET PO SCH (21:32)
[2022-07-05] MEDS: SODIUM CHLORIDE 0.9% INJ 10 ML SYR IV SCH ×2 (05:42→17:28)
[2022-07-05 06:00] VITALS: BP 130/68
[2022-07-05] MEDS: LACTOBACILLUS ACIDOPHILUS CAP (BACID) PO SCH ×4 (07:38→21:07)
[2022-07-05] MEDS: ACETAMINOPHEN 500 MG TAB PO SCH ×3 (07:39→21:00)
[2022-07-05] MEDS: PANTOPRAZOLE 40MG TAB (PROTONIX) PO SCH (07:39)
[2022-07-05] MEDS: HEPARIN SOD (PORCINE) 5000UNITS/ML 1ML VIAL/SYRINGE SQ SCH ×2 (07:39→21:09)
[2022-07-05] MEDS: CHLORTHALIDONE 25 MG TAB PO SCH (07:39)
[2022-07-05] MEDS: FLUTICASONE PROP 0.05% NASAL SPRAY 16 GM (FLONASE) NARES SCH ×2 (07:40→21:00)
[2022-07-05] MEDS: MAGNESIUM OXIDE 400MG TAB (MAG-OX) PO SCH (07:40)
[2022-07-05] MEDS: REMEDY PHYTOPLEX Z-GUARD PASTE 113GM TUBE (FROM STOREROOM PRODUCT) TOP SCH ×3 (07:41→21:00)
[2022-07-05] MEDS: SODIUM CHLORIDE 0.9% INJ 10 ML SYR IV PRN ×2 (11:40→21:09)
[2022-07-05 12:37] LABS: BASO # 0.1 10^3/uL (0.0-0.2); BASO % 0.8 % (0.0-1.0); EOS # 0.2 10^3/uL (0.0-0.5); HEMATOCRIT 33.6 % (36.0-47.0); HEMOGLOBIN 10.3 g/dl (12.0-15.5); LYMPH % 23.8 % (24.0-44.0); MEAN CORPUSCULAR HEMOGLOBIN 27.3 pg (27.0-33.0); MEAN CORPUSCULAR HGB CONC 30.7 g/dl (32.0-36.5); MEAN CORPUSCULAR VOLUME 89.1 fl (80.0-96.0); MONO # 0.6 10^3/uL (0.0-0.8); MONO % 7.5 % (2.0-8.0); NEUTROPHILS # 5.6 10^3/uL (1.5-8.5); NEUTROPHILS % 65.5 % (36.0-66.0); PLATELET COUNT, AUTOMATED 403 10^3/uL (150-450); RED BLOOD COUNT 3.77 10^6/uL (4.00-5.40); WHITE BLOOD COUNT 8.5 10^3/uL (4.0-10.0)
[2022-07-05 13:05] LABS: CALCIUM LEVEL 9.3 MG/DL (8.3-10.6); CREATININE FOR GFR 1.18 MG/DL (0.55-1.30); POTASSIUM SERUM 4.8 MMOL/L (3.5-5.1)
[2022-07-05 14:00] VITALS: BP 134/62
[2022-07-05 20:00] VITALS: BP 132/62
[2022-07-05] MEDS: traZODone 25MG PER 1/2 TABLET PO SCH (21:07)
[2022-07-05] MEDS: MIRTAZAPINE 7.5MG PER 1/2 TABLET PO SCH (21:07)
[2022-07-05] MEDS: VANCOMYCIN HCL 500 MG in D5W MINI-BAG PLUS 100 ML IV SCH (21:08)
[2022-07-06 06:00] VITALS: BP 117/59
[2022-07-06] MEDS: SODIUM CHLORIDE 0.9% INJ 10 ML SYR IV SCH (06:47)
[2022-07-06] MEDS: PANTOPRAZOLE 40MG TAB (PROTONIX) PO SCH (08:33)
[2022-07-06] MEDS: MAGNESIUM OXIDE 400MG TAB (MAG-OX) PO SCH (08:33)
[2022-07-06] MEDS: ACETAMINOPHEN 500 MG TAB PO SCH (08:33)
[2022-07-06] MEDS: CHLORTHALIDONE 25 MG TAB PO SCH (08:34)
[2022-07-06] MEDS: LACTOBACILLUS ACIDOPHILUS CAP (BACID) PO SCH ×2 (08:34→12:38)
[2022-07-06] MEDS: FLUTICASONE PROP 0.05% NASAL SPRAY 16 GM (FLONASE) NARES SCH (08:34)
[2022-07-06] MEDS: REMEDY PHYTOPLEX Z-GUARD PASTE 113GM TUBE (FROM STOREROOM PRODUCT) TOP SCH (08:34)
[2022-07-06] MEDS: HEPARIN SOD (PORCINE) 5000UNITS/ML 1ML VIAL/SYRINGE SQ SCH (08:34)
[2022-07-06] MEDS ORDERED: LINEZOLID 600MG TABLET (ZYVOX) PO SCH (09:00)
[2022-07-06] MEDS ORDERED: CHLO125TA PO (10:17)
[2022-07-06] MEDS ORDERED: MAGN400T2 PO (10:17)
[2022-07-06] MEDS ORDERED: OXYC-517 PO (10:17)
[2022-07-06] MEDS ORDERED: RISATAB3 PO (10:17)
[2022-07-06] MEDS ORDERED: LINE1TAB6 PO (10:17)
[2022-07-06] MEDS ORDERED: MIRT-10 PO (10:17)
== END 2022-07-06 14:05 | disposition home health service (06) | DRG 549 ==
LOC: EEVIPCON 12:15 → M PM&R 12:15
PROVIDERS: ADMIT Physical Medicine & Rehabilitation; ATTEND Physical Medicine & Rehabilitation
DX: M00.822 Arthritis due to other bacteria, left elbow (principal); S52.022K Displaced fracture of olecranon process without intraarticular extension of left ulna, subsequent encounter for closed fracture with nonunion; N17.9 Acute kidney failure, unspecified; E87.1 Hypo-osmolality and hyponatremia; T84.113 Breakdown (mechanical) of internal fixation device of bone of left forearm; R26.89 Other abnormalities of gait and mobility; E87.5 Hyperkalemia; Z74.09 Other reduced mobility; N18.9 Chronic kidney disease, unspecified; I12.9 Hypertensive chronic kidney disease with stage 1 through stage 4 chronic kidney disease, or unspecified chronic kidney disease; D64.9 Anemia, unspecified; M81.0 Age-related osteoporosis without current pathological fracture; E83.42 Hypomagnesemia; E87.6 Hypokalemia; Z74.1 Need for assistance with personal care; S32.512D Fracture of superior rim of left pubis, subsequent encounter for fracture with routine healing; Z86.16 Personal history of COVID-19; Z79.899 Other long term (current) drug therapy; Z91.018 Allergy to other foods; Z66 Do not resuscitate; T36.8X5A Adverse effect of other systemic antibiotics, initial encounter; K59.00 Constipation, unspecified